=== PATIENT | male | born 1940 | race Caucasian/White ===

== ENCOUNTER 2017-02-19 08:00 | Outpatient (CLI) | payer MEDICARE, OTHER ==
[2017-02-19 12:59] LABS: BASOPHILS % (AUTO) 1.1 %; EOSINOPHILS # (AUTO) 0.1 10^3/uL (0.0-0.7); EOSINOPHILS % (AUTO) 2.6 %; HCT - HEMATOCRIT 33.7 % (42.0-52.0); HGB - HEMOGLOBIN 11.5 g/dL (14.0-18.0); LYMPHOCYTES # (AUTO) 1.2 10^3/uL (1.5-3.5); LYMPHOCYTES % (AUTO) 31.1 %; MEAN CORPUSCULAR HEMOGLOBIN 29.2 pg (27.0-31.0); MEAN CORPUSCULAR VOLUME 85.9 fL (80.0-94.0); MEAN PLATELET VOLUME 7.9 fL (7.4-11.4); MONOCYTES # (AUTO) 0.5 10^3/uL (0.0-1.0); MONOCYTES % (AUTO) 12.3 %; NEUTROPHILS % (AUTO) 52.9 %; NUCLEATED RED BLOOD CELLS AUTO 0.1 /100WBC; RED BLOOD COUNT 3.92 10^6/uL (4.70-6.10); RED CELL DISTRIBUTION WIDTH 14.8 % (12.0-15.0); UNCORRECTED WHITE BLOOD COUNT 3.8 x10^3/uL; WHITE BLOOD COUNT 3.8 x10^3/uL (4.8-10.8)
[2017-02-19 13:16] LABS: ALBUMIN/GLOBULIN RATIO 1.5 (1.0-2.2); BILIRUBIN,TOTAL 0.5 mg/dL (0.2-1.0); BUN - BLOOD UREA NITROGEN 25 mg/dL (6-20); CARBON DIOXIDE - CO2 23 mmol/L (21-32); CHLORIDE 111 mmol/L (101-111); CREATININE 1.6 mg/dL (0.6-1.2); GFR - MDRD 42 (>89); GLUCOSE 93 mg/dL (70-100); MAGNESIUM 1.6 mg/dL (1.7-2.8); POTASSIUM 3.9 mmol/L (3.5-5.0); SODIUM 143 mmol/L (135-145); TOTAL PROTEIN 6.6 g/dL (6.7-8.2)
[2017-02-19 13:47] LABS: HEMOGLOBIN A1C 0.69 g/dL
== END 2017-02-19 23:59 ==
LOC: LAB.WCP 08:00
PROVIDERS: ATTEND Family Medicine
DX: N18.3 Chronic kidney disease, stage 3 (moderate) (principal); I10 Essential (primary) hypertension; E03.9 Hypothyroidism, unspecified
CPT/HCPCS: 36415; 80053; 82043; 83036; 83735; 84443; 85025

== ENCOUNTER 2017-09-23 08:00 | Outpatient (CLI) | payer MEDICARE, OTHER ==
[2017-09-23 12:47] LABS: ALBUMIN 3.9 g/dL (3.2-5.5); ALBUMIN/GLOBULIN RATIO 1.6 (1.0-2.2); ALKALINE PHOSPHATASE 37 IU/L (42-121); ALT ALANINE AMINOTRANSFERASE 19 IU/L (10-60); AST ASPARTATE AMINOTRANSFERASE 18 IU/L (10-42); BILIRUBIN,TOTAL 0.9 mg/dL (0.2-1.0); BUN - BLOOD UREA NITROGEN 20 mg/dL (6-20); CALCIUM 8.7 mg/dL (8.5-10.3); CARBON DIOXIDE - CO2 23 mmol/L (21-32); CHLORIDE 110 mmol/L (101-111); CHOL/HDL RATIO 2.4 (<5.0); CHOLESTEROL 77 mg/dL; CREATININE 1.4 mg/dL (0.6-1.2); GFR - MDRD 49 (>89); GLUCOSE 91 mg/dL (70-100); HDL CHOLESTEROL 32 mg/dL; LDL CHOLESTEROL,CALCULATED 28 mg/dL; LDL/HDL RATIO 0.9 (<3.6); SODIUM 141 mmol/L (135-145); TOTAL PROTEIN 6.4 g/dL (6.7-8.2); VLDL CHOLESTEROL 17 mg/dL
[2017-09-23 13:17] LABS: HB2 TOTAL 11.7 g/dL; HEMOGLOBIN A1C 0.6 g/dL; HEMOGLOBIN A1C % 6.8 % (4.6-6.2)
== END 2017-09-23 08:01 | disposition home or self-care (01) ==
LOC: LAB.WCP 08:00
PROVIDERS: ATTEND Family Medicine
DX: J44.9 Chronic obstructive pulmonary disease, unspecified (principal); E11.9 Type 2 diabetes mellitus without complications; I12.9 Hypertensive chronic kidney disease with stage 1 through stage 4 chronic kidney disease, or unspecified chronic kidney disease; N18.3 Chronic kidney disease, stage 3 (moderate); E78.5 Hyperlipidemia, unspecified
CPT/HCPCS: 36415; 80053; 80061; 83036; 83721; 84443

== ENCOUNTER 2017-11-01 07:53 | Outpatient (CLI) | payer MEDICARE, OTHER ==
--- NOTE | 2017-11-01 13:31 | CT Report ---
CT OF THE PELVIS WITHOUT CONTRAST: 11/01/2017 CLINICAL INDICATION: History of right groin pain, history of right hernia repair. TECHNIQUE: Axial CT images of the pelvis were obtained without oral or intravenous contrast (History of anaphylaxis with contrast). COMPARISON: 08/10/2016. FINDINGS: The visualized bowel loops are normal in caliber. Sigmoid diverticulosis is again seen, without CT evidence of diverticulitis. Postoperative changes are seen in the right inguinal canal. No recurrent or residual hernia is identified. No pelvic adenopathy or free fluid is present. Osseous structures demonstrate mild degenerative changes. IMPRESSION: DIVERTICULOSIS, WITHOUT CT EVIDENCE OF DIVERTICULITIS. NO EVIDENCE OF RECURRENT RIGHT INGUINAL HERNIA. In accordance with CT protocol optimization, one or more of the following dose reduction techniques were utilized for this exam: automated exposure control, adjustment of mA and/or KV based on patient size, or use of iterative reconstructive technique. TD: 11/01/2017 13:30
== END 2017-11-01 07:54 | disposition home or self-care (01) ==
LOC: DI 07:53
PROVIDERS: ATTEND Surgery
DX: R10.31 Right lower quadrant pain (principal); K57.30 Diverticulosis of large intestine without perforation or abscess without bleeding
CPT/HCPCS: 72192

== ENCOUNTER 2018-04-06 08:00 | Outpatient (CLI) | payer MEDICARE, OTHER ==
[2018-04-06 13:32] LABS: EOSINOPHILS # (AUTO) 0.1 10^3/uL (0.0-0.7); EOSINOPHILS % (AUTO) 3.4 %; HGB - HEMOGLOBIN 11.5 g/dL (14.0-18.0); LYMPHOCYTES % (AUTO) 27.6 %; MEAN CORPUSCULAR HEMOGLOBIN 30.1 pg (27.0-31.0); MEAN CORPUSCULAR HGB CONC 34.6 g/dL (32.0-36.0); MEAN CORPUSCULAR VOLUME 86.9 fL (80.0-94.0); MONOCYTES # (AUTO) 0.4 10^3/uL (0.0-1.0); MONOCYTES % (AUTO) 9.4 %; NEUTROPHILS # (AUTO) 2.2 10^3/uL (1.5-6.6); NEUTROPHILS % (AUTO) 58.6 %; PLT - PLATELET COUNT 181 10^3/uL (130-450); RED BLOOD COUNT 3.81 10^6/uL (4.70-6.10); RED CELL DISTRIBUTION WIDTH 14.1 % (12.0-15.0); WHITE BLOOD COUNT 3.7 x10^3/uL (4.8-10.8)
[2018-04-06 14:02] LABS: ALBUMIN 3.9 g/dL (3.2-5.5); ALBUMIN/GLOBULIN RATIO 1.4 (1.0-2.2); ALKALINE PHOSPHATASE 38 IU/L (42-121); ALT ALANINE AMINOTRANSFERASE 23 IU/L (10-60); AST ASPARTATE AMINOTRANSFERASE 21 IU/L (10-42); BILIRUBIN,TOTAL 0.9 mg/dL (0.2-1.0); BUN - BLOOD UREA NITROGEN 27 mg/dL (6-20); CARBON DIOXIDE - CO2 23 mmol/L (21-32); CHLORIDE 107 mmol/L (101-111); CHOL/HDL RATIO 2.5 (<5.0); CHOLESTEROL 81 mg/dL; CREATININE 1.8 mg/dL (0.6-1.2); GFR - MDRD 37 (>89); GLUCOSE 135 mg/dL (70-100); HDL CHOLESTEROL 33 mg/dL; LDL CHOLESTEROL,CALCULATED 27 mg/dL; LDL/HDL RATIO 0.8 (<3.6); MAGNESIUM 1.9 mg/dL (1.7-2.8); SODIUM 138 mmol/L (135-145); TOTAL PROTEIN 6.6 g/dL (6.7-8.2); VLDL CHOLESTEROL 21 mg/dL
[2018-04-06 14:37] LABS: HB2 TOTAL 11.9 g/dL; HEMOGLOBIN A1C 0.61 g/dL; HEMOGLOBIN A1C % 6.8 % (4.6-6.2)
== END 2018-04-06 08:01 | disposition home or self-care (01) ==
LOC: LAB.WCP 08:00
PROVIDERS: ATTEND Family Medicine
DX: E11.9 Type 2 diabetes mellitus without complications (principal); E03.9 Hypothyroidism, unspecified; I10 Essential (primary) hypertension; E78.5 Hyperlipidemia, unspecified
CPT/HCPCS: 36415; 80053; 80061; 82043; 83036; 83721; 83735; 84443; 85025

== ENCOUNTER 2018-11-08 08:00 | Outpatient (CLI) | payer MEDICARE, OTHER | END 2018-11-08 23:59 | disposition home or self-care (01) | LOC: LAB.R 08:00 | PROVIDERS: ATTEND Family Medicine | DX: J11.1 Influenza due to unidentified influenza virus with other respiratory manifestations (principal) | CPT/HCPCS: 87275; 87276 ==

== ENCOUNTER 2018-11-10 09:17 | Outpatient (CLI) | payer MEDICARE, OTHER ==
[2018-11-10 13:16] LABS: ALBUMIN 3.8 g/dL (3.2-5.5); ALBUMIN/GLOBULIN RATIO 1.3 (1.0-2.2); BILIRUBIN,TOTAL 0.8 mg/dL (0.2-1.0); CALCIUM 8.4 mg/dL (8.5-10.3); CREATININE 1.9 mg/dL (0.6-1.2); TOTAL PROTEIN 6.7 g/dL (6.7-8.2)
[2018-11-10 14:14] LABS: HB2 TOTAL 11.9 g/dL; HEMOGLOBIN A1C 0.59 g/dL; HEMOGLOBIN A1C % 6.7 % (4.6-6.2)
== END 2018-11-10 23:59 | disposition home or self-care (01) ==
LOC: LAB.WCP 09:17
PROVIDERS: ATTEND Family Medicine
DX: E11.9 Type 2 diabetes mellitus without complications (principal); I12.9 Hypertensive chronic kidney disease with stage 1 through stage 4 chronic kidney disease, or unspecified chronic kidney disease; N18.3 Chronic kidney disease, stage 3 (moderate); E78.5 Hyperlipidemia, unspecified; M75.101 Unspecified rotator cuff tear or rupture of right shoulder, not specified as traumatic
CPT/HCPCS: 36415; 80053; 83036

== ENCOUNTER 2018-12-09 12:34 | Emergency (ER) | payer MEDICARE, OTHER ==
[2018-12-09 12:40] VITALS: BP 130/51
[2018-12-09] MEDS ORDERED: SODIUM CHLORIDE 0.9% 1,000 ML IV ONE (13:09)
[2018-12-09] MEDS ORDERED: IPRATROPIUM/ALBUTEROL 3 ML NEB INH STA (13:10)
[2018-12-09] MEDS ORDERED: DEXAMETHASONE 10 MG/ML VIAL IVP STA (13:10)
--- NOTE | 2018-12-09 13:17 | ED Physician Documentation ---
History of Present Illness - Stated complaint Stated Complaint: SOA - Chief complaint Chief Complaint: Resp - History obtained from History obtained from: Patient, Family - History of Present Illness Pain level max: 0 Pain level now: 0 - Additonal information Additional information: 78-year-old male presents to the emergency department stating that he has not been feeling well for the past few weeks. Had influenza A a few weeks ago, since that time has had continued fatigue. Increasing difficulty breathing over the past few days. States that he is just not feeling well at home. He has a history of COPD, diabetes. He has been using his inhaler approximately every 4 hours at home. Nothing makes it better or worse Review of Systems Ten Systems: 10 systems reviewed and negative Constitutional: denies: Fever, Chills Ears: denies: Ear pain Nose: denies: Rhinorrhea / runny nose, Congestion Cardiac: denies: Chest pain / pressure, Palpitations Respiratory: reports: Dyspnea, Cough, Wheezing GI: denies: Vomiting, Diarrhea Skin: denies: Rash Musculoskeletal: denies: Neck pain, Back pain Neurologic: denies: Headache PD PAST MEDICAL HISTORY - Past Medical History Past Medical History: Yes Cardiovascular: Hypertension, High cholesterol Respiratory: Asthma Endocrine/Autoimmune: Type 1 diabetes, HyPOthyroidism - Past Surgical History Past Surgical History: Yes General: Hiatal hernia repair HEENT: Cataracts - Present Medications Home Medications: Ambulatory Orders Medication Instructions Recorded Confirmed Albuterol Sulfate [Proair Hfa] 2 puffs PO DAILY PRN 09/20/14 12/09/18 Atorvastatin [Lipitor] 4 tab PO DAILY 09/20/14 12/09/18 Glipizide 1 tab PO BID 09/20/14 12/09/18 Levothyroxine [Synthroid] 100 mcg PO DAILY 09/20/14 12/09/18 Montelukast Sodium [Singulair] 1 mg PO DAILY 09/20/14 12/09/18 Niacin [Niaspan] 1 tab PO DAILY 09/20/14 12/09/18 Pioglitazone HCl [Actos] 1 tab PO DAILY 09/20/14 12/09/18 amLODIPine [Norvasc] 1 tab PO DAILY 09/20/14 12/09/18 Doxycycline Hyclate 100 mg PO BID #20 capsule 12/09/18 Losartan Potassium 50 mg PO DAILY 12/09/18 12/09/18 Omeprazole Magnesium [Prilosec] 1 mg PO DAILY 12/09/18 12/09/18 Tamsulosin HCl [Flomax] 1 tab PO DAILY 12/09/18 12/09/18 predniSONE [Prednisone] 40 mg PO DAILY #10 tablet 12/09/18 - Allergies Allergies/Adverse Reactions: Allergies Allergy/AdvReac Type Severity Reaction Status Date / Time IV dye Allergy Severe anaphylacti Uncoded 12/09/18 12:40 c - Social History Does the pt smoke?: No Smoking Status: Never smoker Does the pt drink ETOH?: Yes Does the pt have substance abuse?: No - Immunizations Immunizations are current?: Yes - POLST Patient has POLST: No PD ED PE NORMAL - Vitals Vital signs reviewed: Yes - General General: Alert and oriented X 3, No acute distress - HEENT HEENT: Moist mucous membranes, Pharynx benign - Neck Neck: Supple, no meningeal sign - Cardiac Cardiac: RRR, Strong equal pulses - Respiratory Respiratory: No respiratory distress, Other (Diminished breath sounds at the bases bilaterally) - Abdomen Abdomen: Soft, Non tender, Non distended - Derm Derm: Warm and dry - Neuro Neuro: Alert and oriented X 3 - Psych Psych: Normal mood, Normal affect Results - Vitals Vitals: Vital Signs - 24 hr 12/09/18 12/09/18 12/09/18 12:38 13:02 14:30 Temperature 36.8 C 37.1 C Heart Rate 86 78 Respiratory 20 20 Rate Blood Pressure 130/51 L O2 Saturation 95 12/09/18 15:47 Temperature 37.1 C Heart Rate 78 Respiratory 20 Rate Blood Pressure 130/51 L O2 Saturation 95 Oxygen O2 Source Room air - Labs Labs: Laboratory Tests 12/09/18 12/09/18 13:20 13:20 WBC 6.1 RBC 3.58 L Hgb 10.6 L Hct 31.3 L MCV 87.6 MCH 29.7 MCHC 33.9 RDW 13.9 Plt Count 207 MPV 7.5 Neut # (Auto) 4.5 Lymph # (Auto) 0.8 L Pickett # (Auto) 0.7 Eos # (Auto) 0.0 Baso # (Auto) 0.0 Absolute Nucleated RBC 0.00 Nucleated RBC % 0.0 Sodium 135 Potassium 4.0 Chloride 103 Carbon Dioxide 23 Anion Gap 9.0 BUN 25 H Creatinine 2.0 H Estimated GFR (MDRD) 33 L Glucose 226 H Calcium 8.7 Total Bilirubin 1.1 H AST 18 ALT 18 Alkaline Phosphatase 36 L Total Protein 7.0 Albumin 3.5 Globulin 3.5 Albumin/Globulin Ratio 1.0 Lipase 18 L - Rads (name of study) cxr Radiology: Prelim report reviewed, EMP read contemporaneously, See rad report (Patchy opacities in the left mid and lower lung, which may represent atelectasis or pneumonia. ) PD MEDICAL DECISION MAKING - ED course Complexity details: reviewed results, re-evaluated patient, considered differential, d/w patient, d/w family ED course: 78-year-old male with shortness of breath for the past several weeks. Had influenza A. Now appears to have a post influenza pneumonia. Will start on doxycycline. Feels better after Decadron and DuoNeb. No hypoxia or respiratory distress. Patient is well-appearing, nontoxic. Afebrile. Patient counseled regarding signs and symptoms for which I believe and urgent re-evaluation would be necessary. Patient with good understanding of and agreement to plan and is comfortable going home at this time This document was made in part using voice recognition software. While efforts are made to proofread this document, sound alike and grammatical errors may occur. Departure - Departure Disposition: 01 Home, Self Care Clinical Impression: Pneumonia Qualifiers: Pneumonia type: due to unspecified organism Laterality: left Lung location: unspecified part of lung Qualified Code(s): J18.9 - Pneumonia, unspecified organism Condition: Good Instructions: ED Pneumonia Adult Follow-Up: Jose Alfredo Su MD [Primary Care Provider] - Within 1 week Prescriptions: Doxycycline Hyclate 100 mg PO BID #20 capsule predniSONE [Prednisone] 40 mg PO DAILY #10 tablet Comments: Return if you worsen. Take all antibiotics until gone. Discharge Date/Time: 12/09/18 15:49
[2018-12-09 13:32] LABS: BASOPHILS % (AUTO) 0.5 %; EOSINOPHILS % (AUTO) 0.6 %; HGB - HEMOGLOBIN 10.6 g/dL (14.0-18.0); LYMPHOCYTES # (AUTO) 0.8 10^3/uL (1.5-3.5); LYMPHOCYTES % (AUTO) 13.5 %; MEAN CORPUSCULAR HEMOGLOBIN 29.7 pg (27.0-31.0); MEAN CORPUSCULAR HGB CONC 33.9 g/dL (32.0-36.0); MEAN CORPUSCULAR VOLUME 87.6 fL (80.0-94.0); MEAN PLATELET VOLUME 7.5 fL (7.4-11.4); MONOCYTES # (AUTO) 0.7 10^3/uL (0.0-1.0); MONOCYTES % (AUTO) 11.7 %; NEUTROPHILS # (AUTO) 4.5 10^3/uL (1.5-6.6); NEUTROPHILS % (AUTO) 73.7 %; PLT - PLATELET COUNT 207 10^3/uL (130-450); RED BLOOD COUNT 3.58 10^6/uL (4.70-6.10); RED CELL DISTRIBUTION WIDTH 13.9 % (12.0-15.0); WHITE BLOOD COUNT 6.1 x10^3/uL (4.8-10.8)
[2018-12-09 13:46] LABS: ALBUMIN 3.5 g/dL (3.2-5.5); BILIRUBIN,TOTAL 1.1 mg/dL (0.2-1.0); CALCIUM 8.7 mg/dL (8.5-10.3)
--- NOTE | 2018-12-09 14:47 | XRAY Report ---
Reason: cough Procedure Date: 12/09/2018 Accession Number: [id number] / [id number] Procedure: XR - Chest 2 View X-Ray CPT Code: 87707 FULL RESULT: EXAM: CHEST RADIOGRAPHY EXAM DATE: 12/09/2018 02:35 PM. CLINICAL HISTORY: Cough. COMPARISON: CHEST 2 VIEW PA/LAT 06/09/2016 10:18 AM. TECHNIQUE: 2 views. FINDINGS: Heart size is normal. Calcified plaques in the thoracic aorta. Patchy opacities in the left mid and lower lung. No pleural effusions or pneumothoraces. IMPRESSION: Patchy opacities in the left mid and lower lung, which may represent atelectasis or pneumonia. RADIA
[2018-12-09] MEDS ORDERED: DOXYCYCLINE 100 MG TABLET PO STA (15:03)
== END 2018-12-09 15:49 | disposition home or self-care (01) ==
LOC: ED 12:34
DX: J18.9 Pneumonia, unspecified organism (principal); E10.9 Type 1 diabetes mellitus without complications; I10 Essential (primary) hypertension; E78.00 Pure hypercholesterolemia, unspecified; E03.9 Hypothyroidism, unspecified
CPT/HCPCS: 36415; 71046; 80053; 83690; 85025; 94640; 96361; 96374; 99283; 99284; A9270

== ENCOUNTER 2019-01-27 14:26 | Outpatient (CLI) | payer MEDICARE, OTHER ==
--- NOTE | 2019-01-28 14:33 | XRAY Report ---
Reason: LOW BACK PAIN Procedure Date: 01/27/2019 Accession Number: [id number] / [id number] Procedure: WCP - Lumbar Spine 2 View CPT Code: FULL RESULT: EXAM: LUMBOSACRAL SPINE RADIOGRAPHY EXAM DATE: 01/27/2019 02:38 PM. CLINICAL HISTORY: Low back pain. COMPARISONS: CHEST 2 VIEW 12/09/2018 2:25 PM. TECHNIQUE: 2 views. FINDINGS: Alignment: Normal. No spondylolisthesis or scoliosis. Bones: Five [id number] lumbar vertebral bodies are present. No fractures or bone lesions. Disks: Normal. Disk heights are maintained. Facets: No degenerative changes. Sacroiliac Joints: Unremarkable. Soft Tissues: Arthroscopic deposition is noted within the abdominal aorta without apparent aneurysmal dilatation. Stable mild anterior wedging compression of superior endplate of T11 compared to a prior chest radiograph. The visualized bowel gas pattern is normal. IMPRESSION: Normal lumbar spine radiography. RADIA
== END 2019-01-27 14:27 | disposition home or self-care (01) ==
LOC: DI.WCP 14:26
PROVIDERS: ATTEND Physician Assistant
DX: M54.5 Low back pain (principal)
CPT/HCPCS: 72100

== ENCOUNTER 2019-03-30 13:17 | Outpatient (CLI) | payer MEDICARE, OTHER ==
--- NOTE | 2019-03-31 11:18 | DEXA Report ---
Reason: BONE DISORDER Procedure Date: 03/30/2019 Accession Number: [id number] / [id number] Procedure: DEX - Dexa Spine and/or Hip CPT Code: FULL RESULT: EXAM: Dexa Spine and/or Hip DATE: 03/30/2019 1:45 PM CLINICAL HISTORY: BONE DISORDER TECHNIQUE: Dual energy x-ray absorptiometry (DXA) was performed on a Cherrish System. Regions measured are the AP Spine, femoral neck, and if needed forearm. COMPARISON: None. In accordance with the International Society for Clinical Densitometry (ISCD) guidelines, data from previous exams may be reanalyzed using current recommendations and techniques. This is done to allow a more accurate basis for comparison with the current study. FINDINGS: The data for the lumbar spine is as follows: BMD (g/cm/cm) T-SCORE Z-SCORE REGION L1 1.353 1.6 1.7 L2 1.517 2.3 2.4 L3 1.586 2.9 3.0 L4 1.542 2.5 2.6 TOTAL 1.511 2.4 2.5 NOTE: All evaluable vertebrae are used for classification The data for the hip is as follows: BMD (g/cm/cm) T-SCORE Z-SCORE REGION Neck 0.909 -1.2 -0.2 TOTAL 0.979 -0.8 -0.2 NOTE: The femoral neck or total proximal femur, whichever is lowest, is used for classification. IMPRESSION: THE WHO CLASSIFICATION BASED ON THE INTERNATIONAL REFERENCE STANDARD IS OSTEOPENIA. THE FRACTURE RISK IS INCREASED. Please note that the decreased bone density is detected only in the hip. RECOMMENDATION: Patients with diagnosis of osteoporosis or osteopenia should have regular bone mineral density assessment. For those eligible for Medicare, routine testing is allowed once every 2 years. Testing frequency can be increased for patients who have rapidly progressing disease or for those who are receiving medical therapy to restore bone mass. COMMENT: World Health Organization (WHO) definitions for osteoporosis and osteopenia: NORMAL BMD: T-score at -1.0 or higher, fracture risk is low OSTEOPENIA BMD: T-score between -1.0 and -2.5, fracture risk is increased. OSTEOPOROSIS BMD: T-score at -2.5 or lower, fracture risk is high. National Osteoporosis Foundation recommends: 1. Obtain adequate dietary calcium (at least 1200 mg per day) and vitamin D (400-800 international units per day). 2. Participate, as appropriate, in regular weightbearing and muscle-strengthening exercise. 3. Avoid tobacco use and reduce alcohol and caffeine intake. 4. For more detailed information see the website at www.NOF.org.
== END 2019-03-30 13:18 | disposition home or self-care (01) ==
LOC: DI 13:17
PROVIDERS: ATTEND Physician Assistant
DX: M85.88 Other specified disorders of bone density and structure, other site (principal)
CPT/HCPCS: 77080

== ENCOUNTER 2019-07-05 15:33 | Outpatient (CLI) | payer MEDICARE, OTHER ==
--- NOTE | 2019-07-06 14:10 | XRAY Report ---
Reason: GAS PAIN Procedure Date: 07/05/2019 Accession Number: [id number] / [id number] Procedure: XRN - Abdomen 2 View X-Ray CPT Code: 81832 Final Report FULL RESULT: EXAM: ABDOMEN RADIOGRAPHY EXAM DATE: 07/05/2019 03:59 PM. CLINICAL HISTORY: Abdominal pain, gas pain. COMPARISON: ABDOMEN/PELVIS W/O 08/10/2016 6:52 AM. TECHNIQUE: 2 views. FINDINGS: Lung Bases: Unremarkable. Bowel Gas Pattern: Within normal limits. No dilated loops or abnormal fluid levels. Free Air: None. Other: None. IMPRESSION: Normal 2-view abdomen x-ray. RADIA
== END 2019-07-05 15:34 | disposition home or self-care (01) ==
LOC: DI.N 15:33
PROVIDERS: ATTEND Physician Assistant Medical
DX: R10.9 Unspecified abdominal pain (principal); R14.0 Abdominal distension (gaseous)
CPT/HCPCS: 74019

== ENCOUNTER 2019-10-27 08:48 | Outpatient (CLI) | payer MEDICARE, OTHER ==
--- NOTE | 2019-10-27 15:49 | XRAY Report ---
Reason: COUGH WITH FEVER Procedure Date: 10/27/2019 Accession Number: [id number] / [id number] Procedure: WCP - Chest 2 View X-Ray CPT Code: 35526 Final Report FULL RESULT: EXAM: CHEST RADIOGRAPHY 2 VIEWS EXAM DATE: 10/27/2019. CLINICAL HISTORY: Cough with fever. COMPARISON: PA and lateral chest on 06/09/2016. TECHNIQUE: PA and lateral views. FINDINGS: Lungs/Pleura: Normal vasculature. The lungs are clear. No pleural fluid or pneumothorax. Mediastinum: Normal cardiac and mediastinal contours. Bones: Mild degenerative changes of the spine. IMPRESSION: Normal examination. No change from 06/09/2016. RADIA
== END 2019-10-27 23:59 | disposition home or self-care (01) ==
LOC: DI.WCP 08:48
PROVIDERS: ATTEND Family Medicine
DX: R05 Cough (principal); R50.9 Fever, unspecified
CPT/HCPCS: 71046

== ENCOUNTER 2019-11-10 14:52 | Outpatient (CLI) | payer MEDICARE, OTHER ==
--- NOTE | 2019-11-10 23:19 | XRAY Report ---
Reason: pneumonia, COPD Procedure Date: 11/10/2019 Accession Number: [id number] / [id number] Procedure: XRN - Chest 2 View X-Ray CPT Code: 15479 Final Report FULL RESULT: EXAM: CHEST RADIOGRAPHY EXAM DATE: 11/10/2019 03:13 PM. CLINICAL HISTORY: Pneumonia, COPD. Productive cough. COMPARISON: CHEST 2 VIEW 10/27/2019 8:39 AM. TECHNIQUE: 2 views. FINDINGS: Lungs/Pleura: New minimal left base lateral opacification, could represent atelectasis versus minimal pneumonia. No pleural effusion or pneumothorax. Mediastinum: Heart and mediastinal contours are unremarkable. IMPRESSION: New minimal left base lateral opacification, could represent atelectasis versus minimal pneumonia. RADIA
== END 2019-11-10 14:53 | disposition home or self-care (01) ==
LOC: DI.N 14:52
PROVIDERS: ATTEND Family Medicine
DX: J44.0 Chronic obstructive pulmonary disease with (acute) lower respiratory infection (principal); R06.00 Dyspnea, unspecified; R07.89 Other chest pain
CPT/HCPCS: 36415; 71046; 80048; 83880; 84484; 85027

== ENCOUNTER 2019-11-10 16:32 | Outpatient (CLI) | payer MEDICARE, OTHER ==
[2019-11-10 16:51] LABS: HGB - HEMOGLOBIN 10.6 g/dL (14.0-18.0); MEAN CORPUSCULAR HEMOGLOBIN 30.3 pg (27.0-31.0); MEAN CORPUSCULAR HGB CONC 32.8 g/dL (32.0-36.0); MEAN CORPUSCULAR VOLUME 92.3 fL (80.0-94.0); MEAN PLATELET VOLUME 8.8 fL (7.4-11.4); RED BLOOD COUNT 3.5 10^6/uL (4.70-6.10); RED CELL DISTRIBUTION WIDTH 14.2 % (12.0-15.0); WHITE BLOOD COUNT 6.9 x10^3/uL (4.8-10.8)
[2019-11-10 16:58] LABS: CALCIUM 8.9 mg/dL (8.5-10.3); CREATININE 2.1 mg/dL (0.6-1.2)
== END 2019-11-10 16:33 | disposition home or self-care (01) ==
LOC: LAB 16:32
PROVIDERS: ATTEND Family Medicine
DX: R06.00 Dyspnea, unspecified (principal); R07.89 Other chest pain
CPT/HCPCS: 36415; 80048; 83880; 84484; 85027

== ENCOUNTER 2020-01-02 14:41 | Outpatient (CLI) | payer MEDICARE, OTHER ==
--- NOTE | 2020-01-02 21:41 | XRAY Report ---
Reason: LEFT WRIST PAIN Procedure Date: 01/02/2020 Accession Number: [id number] / [id number] Procedure: WCP - Wrist 3 View LT CPT Code: Final Report FULL RESULT: EXAM: 1. LEFT WRIST RADIOGRAPHY. 2. LEFT HAND RADIOGRAPHY. EXAM DATE: 01/02/2020 02:41 PM. CLINICAL HISTORY: Left wrist pain. Fall onto the left hand today. Pain down center of hand and wrist. COMPARISON: None. TECHNIQUE: 3 views wrist and 3 views hand. FINDINGS: Bones: Osteopenia. Mildly comminuted and displaced spiral fractures of the 3rd and 4th metacarpal diaphyses. Possible extension into the proximal carpometacarpal joints. Distal fracture fragment at the 3rd metacarpal displaced dorsally 3 mm. Joints: Alignment anatomic. Scattered mild to moderate degenerative changes, most prominent at the 1st carpometacarpal joint. Soft Tissues: Mild soft tissue swelling over the metacarpals dorsally. IMPRESSION: 1. Osteopenia. 2. Mildly rounded and displaced spiral fractures 3rd and 4th metacarpals with possible intra-articular extension proximally. 3. Mild soft tissue swelling. RADIA
--- NOTE | 2020-01-02 21:42 | XRAY Report ---
Reason: LEFT HAND PAIN Procedure Date: 01/02/2020 Accession Number: [id number] / [id number] Procedure: WCP - Hand 3 View LT CPT Code: Final Report FULL RESULT: EXAM: 1. LEFT WRIST RADIOGRAPHY. 2. LEFT HAND RADIOGRAPHY. EXAM DATE: 01/02/2020 02:41 PM. CLINICAL HISTORY: Left wrist pain. Fall onto the left hand today. Pain down center of hand and wrist. COMPARISON: None. TECHNIQUE: 3 views wrist and 3 views hand. FINDINGS: Bones: Osteopenia. Mildly comminuted and displaced spiral fractures of the 3rd and 4th metacarpal diaphyses. Possible extension into the proximal carpometacarpal joints. Distal fracture fragment at the 3rd metacarpal displaced dorsally 3 mm. Joints: Alignment anatomic. Scattered mild to moderate degenerative changes, most prominent at the 1st carpometacarpal joint. Soft Tissues: Mild soft tissue swelling over the metacarpals dorsally. IMPRESSION: 1. Osteopenia. 2. Mildly rounded and displaced spiral fractures 3rd and 4th metacarpals with possible intra-articular extension proximally. 3. Mild soft tissue swelling. RADIA
== END 2020-01-02 23:59 | disposition home or self-care (01) ==
LOC: DI.WCP 14:41
PROVIDERS: ATTEND Nurse Practitioner
DX: S62.323A Displaced fracture of shaft of third metacarpal bone, left hand, initial encounter for closed fracture (principal); S62.325A Displaced fracture of shaft of fourth metacarpal bone, left hand, initial encounter for closed fracture; M85.842 Other specified disorders of bone density and structure, left hand

== ENCOUNTER 2020-03-19 11:13 | Outpatient (CLI) | payer MEDICARE, OTHER ==
[2020-03-19 11:30] LABS: BASOPHILS % (AUTO) 0.8 %; EOSINOPHILS # (AUTO) 0.2 10^3/uL (0.0-0.7); EOSINOPHILS % (AUTO) 3.2 %; LYMPHOCYTES # (AUTO) 1.1 10^3/uL (1.5-3.5); LYMPHOCYTES % (AUTO) 21.8 %; MEAN CORPUSCULAR HEMOGLOBIN 29.9 pg (27.0-31.0); MEAN CORPUSCULAR HGB CONC 32.7 g/dL (32.0-36.0); MEAN CORPUSCULAR VOLUME 91.3 fL (80.0-94.0); MEAN PLATELET VOLUME 8.8 fL (7.4-11.4); MONOCYTES # (AUTO) 0.4 10^3/uL (0.0-1.0); MONOCYTES % (AUTO) 8.2 %; NEUTROPHILS # (AUTO) 3.3 10^3/uL (1.5-6.6); NEUTROPHILS % (AUTO) 65.6 %; PLT - PLATELET COUNT 164 10^3/uL (130-450); RED BLOOD COUNT 3.68 10^6/uL (4.70-6.10); RED CELL DISTRIBUTION WIDTH 13.8 % (12.0-15.0)
[2020-03-19 11:46] LABS: ALBUMIN 4.2 g/dL (3.2-5.5); ALBUMIN/GLOBULIN RATIO 1.7 (1.0-2.2); BILIRUBIN,TOTAL 0.9 mg/dL (0.2-1.0); CALCIUM 9.1 mg/dL (8.5-10.3); CREATININE 2.2 mg/dL (0.6-1.2); TOTAL PROTEIN 6.7 g/dL (6.7-8.2)
== END 2020-03-19 11:14 | disposition home or self-care (01) ==
LOC: LAB 11:13
PROVIDERS: ATTEND Physician Assistant
DX: R19.5 Other fecal abnormalities (principal); R17 Unspecified jaundice
CPT/HCPCS: 36415; 80053; 82977; 85025

== ENCOUNTER 2020-04-12 08:56 | Outpatient (CLI) | payer MEDICARE, OTHER | END 2020-04-12 08:57 | disposition home or self-care (01) | LOC: DI 08:56 | PROVIDERS: ATTEND Physician Assistant | DX: I51.7 Cardiomegaly (principal) | CPT/HCPCS: 93306 ==

== ENCOUNTER 2020-07-04 08:00 | Outpatient (CLI) | payer MEDICARE, OTHER ==
[2020-07-04 18:47] LABS: BASOPHILS % (AUTO) 0.7 %; EOSINOPHILS # (AUTO) 0.1 10^3/uL (0.0-0.7); EOSINOPHILS % (AUTO) 3.1 %; HGB - HEMOGLOBIN 10.9 g/dL (14.0-18.0); LYMPHOCYTES # (AUTO) 1.3 10^3/uL (1.5-3.5); LYMPHOCYTES % (AUTO) 28.1 %; MEAN CORPUSCULAR HEMOGLOBIN 29.6 pg (27.0-31.0); MEAN CORPUSCULAR HGB CONC 31.7 g/dL (32.0-36.0); MEAN CORPUSCULAR VOLUME 93.5 fL (80.0-94.0); MEAN PLATELET VOLUME 10.2 fL (7.4-11.4); MONOCYTES # (AUTO) 0.3 10^3/uL (0.0-1.0); MONOCYTES % (AUTO) 7.2 %; NEUTROPHILS # (AUTO) 2.8 10^3/uL (1.5-6.6); NEUTROPHILS % (AUTO) 60.7 %; PLT - PLATELET COUNT 187 10^3/uL (130-450); RED BLOOD COUNT 3.68 10^6/uL (4.70-6.10); RED CELL DISTRIBUTION WIDTH 14.2 % (12.0-15.0); WHITE BLOOD COUNT 4.6 x10^3/uL (4.8-10.8)
[2020-07-04 19:06] LABS: ALBUMIN 4.1 g/dL (3.2-5.5); ALBUMIN/GLOBULIN RATIO 1.5 (1.0-2.2); ALKALINE PHOSPHATASE 40 IU/L (42-121); ALT ALANINE AMINOTRANSFERASE 21 IU/L (10-60); AST ASPARTATE AMINOTRANSFERASE 17 IU/L (10-42); BILIRUBIN,TOTAL 0.9 mg/dL (0.2-1.0); BUN - BLOOD UREA NITROGEN 28 mg/dL (6-20); CALCIUM 9.2 mg/dL (8.5-10.3); CARBON DIOXIDE - CO2 22 mmol/L (21-32); CHLORIDE 108 mmol/L (101-111); CHOL/HDL RATIO 2.4 (<5.0); CHOLESTEROL 97 mg/dL; GLUCOSE 128 mg/dL (70-100); HDL CHOLESTEROL 41 mg/dL; LDL CHOLESTEROL,CALCULATED 44 mg/dL; LDL/HDL RATIO 1.1 (<3.6); SODIUM 140 mmol/L (135-145); TOTAL PROTEIN 6.9 g/dL (6.7-8.2); VLDL CHOLESTEROL 12 mg/dL
[2020-07-04 20:44] LABS: HEMOGLOBIN A1c% 6.4 % (4.27-6.07)
== END 2020-07-04 23:59 | disposition home or self-care (01) ==
LOC: LAB.WCP 08:00
PROVIDERS: ATTEND Physician Assistant
DX: E11.9 Type 2 diabetes mellitus without complications (principal); Z12.5 Encounter for screening for malignant neoplasm of prostate; E03.9 Hypothyroidism, unspecified
CPT/HCPCS: 36415; 80053; 80061; 83036; 84443; 85025; G0103; 83721; 84153

== ENCOUNTER 2020-08-26 10:23 | Outpatient (CLI) | payer MEDICARE, OTHER ==
--- NOTE | 2020-08-26 12:44 | SLEEP CARE CONSULTATION ---
Information from patient questionnaire entered by Haydee Hansen. I have reviewed and concur with the information entered by Haydee Hansen. This document represents the service I personally performed and the decisions made by me, William Davidson MD, [facility]. History of Present Illness Service Date and Time: 08/26/2020 1023 Reason for Visit: New patient Chief Complaint: reports: Insomnia, Unrefreshed sleep, Snoring, Fatigue, Frequent awakenings at night Date of Onset: 5 years Usual bedtime: 9-10 pm Time it takes to fall asleep: sometimes fast, sometimes hours Snores at night: Yes Observed to quit breathing while asleep: No Sleeps alone due to snoring: No Number of times waking at night: 3-4 Reasons for waking at night: reports: Pain, Bathroom Toss, Turn, or Twitch while sleeping: Yes Feels refreshed in the morning: No (sometimes) Morning headache: Yes Sleepy or fatigued during the day: Yes Ever fallen asleep while driving: No Takes day naps: Yes Dreams during day naps: Yes Prior sleep studies: No Additional HPI information: I had the pleasure of seeing Mr. Monson today regarding the possibility of him having a sleep disorder. As you know, he is a 80 year old gentleman who complains of fatigue for the past 5 years. The patient tells me that he normally goes to bed around 9 - 10 pm, and it takes him sometimes hours to fall asleep. He has been told that he snores loudly and irregularly at night. He has never been observed to stop breathing in his sleep. However, he is a and sleeps alone. He can recall waking up on the average of 3 - 5 times during the night. Most of the time he wakes up because of having to use the bathroom and pain. He has awakened occasionally because of his own snoring, but not choking, or having to gasp for air. There is a lot of tossing and turning in his sleep. No somniloquy (sleep talking) or somnambulism (sleep walking). Generally he can recall having dreams. In the morning he usually gets up out of the bed around 7 a.m. not feeling refreshed nor rested. He usually occasionally has morning headache. During the day he complains of feeling fatigued but not particularly sleepy. His score on Thompson Sleepiness Scale is 5 out of 24. He has never fallen asleep while driving nor has had any accident due to sleepiness. He occasionally takes a nap during the day. Upon falling asleep during the day he reports having dreams. He has had sleep. No symptoms of restless leg syndrome. He denies having impaired concentration during the day. - Parasomnia Symptoms Ever been unable to move upon waking from sleep: Yes Ever felt weak in the knees when startled or emotional: No Bothered by creepy, crawly, restless sensations in legs: No Problems with memory or concentration: No Subjective Initial Thompson Sleepiness Scale score: 5 (in 2020) Past Medical History Past Medical History: reports: Hypertension, Diabetes, Asthma, Depression, GERD, Other (kidney disease, leg swelling) Social History The patient's occupation is a Retired. Patient is / and lives in [place]. Cigarettes per day (20/pack): 20 Years of smokin Quit date: 1964 Smoking Pack Years: 2.0 Alcohol use: Yes Alcohol amount and frequency: slight, sometimes once a week Caffeine use: Yes Caffeine amount and frequency: daily, 2 cups Family History Family history of sleep disordered breathing: Yes (mother) Allergies and Home Medications Drug allergies reviewed: Yes Home medication list reviewed: Yes Review of Systems Weight gain over past 5 years: 40 Weight loss over past 5 years: i wish Cardiovascular: reports: high blood pressure, chest pain, leg or foot swelling, have to sleep sitting up Respiratory: reports: shortness of breath, wheeze, other (Maya's Esodhagus) Gastrointestinal: reports: heartburn Urinary: reports: frequency Neurological: reports: headaches Psychiatric: reports: depression Ear/Nose/Throat: reports: nasal congestion, tonsillectomy, wisdom teeth removed Endocrine: reports: sluggishness, increased appetite, increased urination, unexplained weakness Musculoskeletal: reports: joint pain, neck pain, back pain, muscle pain or cramping Immunologic: reports: rash, itching, allergies to food or environment (shrimp only; shellfish, some not all) Physical Exam Vital signs obtained and entered by: To minimize the risk of COVID-19 exposure, detailed exam was not performed. Height: 5 ft 8 in Weight: 225 lb Body Mass Index: 34.2 BMI Classification: Obese Impression and Plan IMPRESSION: 1. Obstructive Sleep Apnea-Hypopnea Syndrome, as suggested by history of loud and irregular snoring, frequent awakenings during the night, unrefreshed sleep, morning headache, and fatigue. Narrow oropharynx and obesity are common predisposing factors for obstructive sleep apnea-hypopnea syndrome. Untreated obstructive sleep apnea can also cause hypertension. Pathophysiology of sleep- disordered breathing was discussed. I recommend proceeding to polysomnography to confirm the diagnosis and to assess severity. If he has significant sleep disordered breathing, a manual CPAP titration study will also be performed to find the optimal treatment pressure. I informed the patient of what the sleep studies involve and after some discussion, he agreed to proceed. Plan: 1. Schedule polysomnography and possibly a manual CPAP titration study 2. Avoid long distance driving or when feeling sleepy. 3. Avoid alcohol, sedative and muscle relaxant around bedtime. 4. Attempt to lose weight. 5. Return in 1 to 2 weeks after the study to discuss results and initiate therapy. Visit Type: In Office Time Spent with Patient (minutes): 15 Provider Statement: I spent 100% of the Face to Face Visit with the patient with greater than 50% spent counseling the patient and coordination of care.
== END 2020-08-26 10:24 | disposition home or self-care (01) ==
LOC: SC 10:23
PROVIDERS: ATTEND Internal Medicine Pulmonary Disease
DX: R53.83 Other fatigue (principal); G47.8 Other sleep disorders; R51.9 Headache, unspecified; R06.83 Snoring; E66.9 Obesity, unspecified; Z68.34 Body mass index [BMI] 34.0-34.9, adult
CPT/HCPCS: 99203; G0463; 99212

== ENCOUNTER 2020-09-14 08:15 | Outpatient (CLI) | payer MEDICARE, OTHER ==
--- NOTE | 2020-09-16 10:05 | MRI Report ---
PROCEDURE: Shoulder LT W/O INDICATIONS: LEFT ROTATOR CUFF SYNDROME TECHNIQUE: Noncontrast oblique coronal T2 fast spin echo with fat saturation, oblique sagittal T1 spin echo and T2 fast spin echo with fat saturation, axial T1 spin echo and T2 fast spin echo with fat saturation t hrough the shoulder. COMPARISON: None. FINDINGS: Image quality: Excellent. Rotator cuff: Tendinosis and low-grade articular and bursal surface partial-thickness tear involving distal supraspinatus and infraspinatus at their insertion on humeral head is seen extending to muscul ar tendinous junction. Distal subscapularis tendinosis and low-grade intrasubstance partial thickness tear is also noted. No full-thickness rotator cuff tendon rupture. Very mild supraspinatus muscle at rophy is seen on sagittal images. Bones and bursae: No bone marrow contusions or fractures. Moderate acromioclavicular joint osteoarth ritic changes are seen with downward osteophyte formation depressing on musculotendinous junction of supraspinatus. Mild glenohumeral joint osteoarthritis is also noted. The acromion demonstrates conven tional anatomy, without an os acromiale. No pathologic subacromial/subdeltoid bursal fluid is presen t. Capsule and soft tissues: In the absence of intra-articular contrast, there is suggestion of anterio r inferior labral tear at 5 to 6:00 position. The glenohumeral ligaments appear intact. Proximal intr a-articular portion of long head of biceps tendinosis and low-grade partial-thickness tear is seen. T he rotator interval appears normal, without fibrosis. The coracohumeral ligament is normal in thickn ess. IMPRESSION: 1. Tendinosis and low-grade articular and bursal surface partial-thickness tear involving distal supr aspinatus and infraspinatus extending to muscular tendinous junction. Distal subscapularis tendinosis and low-grade intrasubstance partial thickness tear. No full-thickness rotator cuff tendon rupture. Mild supraspinatus muscle atrophy. 2. Mild glenohumeral joint osteoarthritis and mild to moderate acromioclavicular joint osteoarthritis . No fracture or dislocation. 3. Suggestion of anterior inferior labral tear at 5 to 6:00 position. 4. Tendinosis and low-grade partial-thickness tear involving proximal intra-articular portion of long head of biceps. Reviewed by: Vik Snyder MD on 09/16/2020 10:04 AM PST Approved by: Vik Snyder MD on 09/16/2020 10:04 AM PST Station ID: [id number]
== END 2020-09-14 08:16 | disposition home or self-care (01) ==
LOC: DI 08:15
PROVIDERS: ATTEND Physician Assistant
DX: M75.102 Unspecified rotator cuff tear or rupture of left shoulder, not specified as traumatic (principal); M19.012 Primary osteoarthritis, left shoulder; S46.812A Strain of other muscles, fascia and tendons at shoulder and upper arm level, left arm, initial encounter; S46.112A Strain of muscle, fascia and tendon of long head of biceps, left arm, initial encounter

== ENCOUNTER 2020-10-06 20:38 | Outpatient (CLI) | payer MEDICARE, OTHER | END 2020-10-06 20:39 | disposition home or self-care (01) | LOC: SC 20:38 | PROVIDERS: ATTEND Internal Medicine Pulmonary Disease | DX: G47.33 Obstructive sleep apnea (adult) (pediatric) (principal); G47.61 Periodic limb movement disorder; I10 Essential (primary) hypertension; E11.9 Type 2 diabetes mellitus without complications; E66.9 Obesity, unspecified; Z68.34 Body mass index [BMI] 34.0-34.9, adult | CPT/HCPCS: 95810 ==

== ENCOUNTER 2020-10-14 08:53 | Outpatient (CLI) | payer MEDICARE, OTHER ==
--- NOTE | 2020-10-14 09:44 | SLEEP CARE CONSULTATION ---
Information from patient questionnaire entered by Haydee Hansen. I have reviewed and concur with the information entered by Haydee Hansen. This document represents the service I personally performed and the decisions made by me, William Davidson MD, [facility]. History of Present Illness Service Date and Time: 10/14/2020 0853 Initial [place] Sleepiness Scale score: 5 (in 2019) Current [place] Sleepiness Scale score: 0 Additional HPI information: HPI: Mr. Monson returned for follow up of the sleep study he had on 10/06/2020. The polysomnography showed that the patient had slightly reduced sleep efficiency due to a few awakenings after the sleep onset. The sleep architecture was relatively normal considering the first-night effect. Respiratory monitoring showed moderate obstructive sleep apnea-hypopnea (AHI = 16.6) associated with oxyhemoglobin desaturation and minimal hypoxia (simin oxygen saturation of 89%) but not sleep fragmentation. The respiratory events occurred mainly during supine sleep (supine AHI = 37.2; non-supine = 5.38). Snore was loud in intensity. There was mild periodic leg movement of sleep not associated with sleep fragmentation. Cardiac rhythm was normal sinus rhythm without significant arrhythmia. No abnormal behavior (parasomnia) observed during the night. The patient was informed of these findings. I explained to him the pathophysiology behind obstructive sleep apnea. We then spent quite a bit of time discussing different treatment options. For mild obstructive sleep apnea, surgery and oral appliance are alternatives to nasal CPAP therapy but in moderate or severe cases, nasal CPAP is the most effective and reliable treatment. Weight loss in an obese individual is strongly recommended. After some discussion, he opted to go with the nasal CPAP therapy. I explained to him how CPAP machine works and what to expect when using the machine. He is encouraged to use CPAP every night especially in the first 2 to 3 nights in order to get used to it. He should call his CPAP supplier or me to discuss any mechanical problem that may occur. If he snores or feels like he is not getting enough air from the machine, he should notify me and I will increase the pressure. Sleep Study - Results Type of Sleep Study: Polysomnography Prior sleep studies: No Allergies and Home Medications Drug allergies reviewed: Yes Home medication list reviewed: Yes Review of Systems Review of systems same as previous: Yes Physical Exam Height: 5 ft 8 in Weight: 252 lb (with coat and boots on) Body Mass Index: 38.2 BMI Classification: Obese Impression and Plan IMPRESSION: 1. Obstructive Sleep Apnea-Hypopnea Syndrome, moderate, associated with minimal hypoxemia. Possibly, this is the cause of the patients symptoms of unrefreshed sleep, and excessive daytime sleepiness. As mentioned above, the patient will be started on an autoCPAP set between 5 and 15 cmH2O. Depending on his response and compliance he may be brought back for an overnight CPAP titration study. PLAN: 1. Prescription made for an autoCPAP, heated humidifier, and related supplies. 2. Attempt to lose weight and avoid alcohol consumption near bedtime. 3. The patient is again cautioned about driving until his sleepiness completely resolves on the CPAP therapy. 4. Return for follow up after one month on the new machine. Follow up recommended for: Weight management Visit Type: In Office Time Spent with Patient (minutes): 15 Provider Statement: I spent 100% of the Face to Face Visit with the patient with greater than 50% spent counseling the patient and coordination of care.
== END 2020-10-14 08:54 | disposition home or self-care (01) ==
LOC: SC 08:53
PROVIDERS: ATTEND Internal Medicine Pulmonary Disease
DX: G47.33 Obstructive sleep apnea (adult) (pediatric) (principal); E66.9 Obesity, unspecified; Z68.38 Body mass index [BMI] 38.0-38.9, adult
CPT/HCPCS: 99212; G0463

== ENCOUNTER 2020-10-23 13:52 | Outpatient (CLI) | payer MEDICARE, OTHER ==
[2020-10-23 17:54] LABS: MICROALBUM/CREATININE RATIO,UR 104.9 ug/mg (<30.0); MICROALBUMIN,URINE 8.5 mg/dL (0-300.0)
== END 2020-10-23 13:53 | disposition home or self-care (01) ==
LOC: LAB.N 13:52
PROVIDERS: ATTEND Physician Assistant
DX: N18.30 Chronic kidney disease, stage 3 unspecified (principal)
CPT/HCPCS: 82043; 82570

== ENCOUNTER 2020-11-18 14:40 | Outpatient (CLI) | payer MEDICARE, OTHER ==
[2020-11-18 18:05] LABS: ALBUMIN/GLOBULIN RATIO 1.5 (1.0-2.2); BILIRUBIN,TOTAL 0.7 mg/dL (0.2-1.0); CALCIUM 9.4 mg/dL (8.5-10.3); CREATININE 2.5 mg/dL (0.6-1.2); POTASSIUM 4.8 mmol/L (3.5-5.0); TOTAL PROTEIN 6.6 g/dL (6.7-8.2)
[2020-11-18 18:14] LABS: CREATININE,URINE 90.7 mg/dL; MICROALBUM/CREATININE RATIO,UR 133.4 ug/mg (<30.0); MICROALBUMIN,URINE 12.1 mg/dL (0-300.0); PROTEIN/CREATININE RATIO,URINE 0.2 (<=0.2)
== END 2020-11-18 14:41 | disposition home or self-care (01) ==
LOC: LAB.N 14:40
PROVIDERS: ATTEND Physician Assistant
DX: N18.4 Chronic kidney disease, stage 4 (severe) (principal); E87.5 Hyperkalemia
CPT/HCPCS: 36415; 80053; 82043; 82570; 84156

== ENCOUNTER 2020-11-25 14:32 | Outpatient (CLI) | payer MEDICARE, OTHER ==
--- NOTE | 2020-11-26 10:46 | SLEEP CARE CONSULTATION ---
Information from patient questionnaire entered by Lorrie Peace. I have reviewed and concur with the information entered by Lorrie Peace. This document represents the service I personally performed and the decisions made by me, William Davidson MD, [facility]. History of Present Illness Service Date and Time: 11/25/2020 1432 Previous diagnosis: Moderate, Obstructive Sleep Apnea-Hypopnea Syndrome AHI: 16.6 Reason for follow up: first compliance (10/16) Equipment type: CPAP Equipment obtained from: Other ([employer]) Prior sleep studies: No Year and Where[facility] Type of Sleep Study: Polysomnography HPI additional information: HPI: Mr. Monson was diagnosed to have moderate obstructive sleep apnea-hypopnea syndrome and returns today for follow up of CPAP therapy. The patient purchased the device from [employer] and was fitted with a full face mask. He uses the device nightly and all through the night. The compliance report shows that he uses the device 30 nights out of the past 30 nights, averaging 8.7 hours a night. He complains of aerophagia and having to wear the mask tightly but no particular problem with the device such as soreness on the face, dry nose, epistaxis, nasal congestion or headache. He thinks that the pressure of 5 - 15 cmH2O is alright. On the CPAP therapy he notices improvement in his sleep quality, and that he wakes up feeling fresher in the morning and more awake/alert during the day. His notices no snore at all. [place] Sleepiness Scale score is 4. The average residual AHI is 3.4; and average time in large leak per day is 0 minutes a night. The 90th percentile pressure is 13.8 cmH2O. CPAP Compliance Data - Data Reviewed with Patient Average duration of nightly device use: 8 h 42 min Compliance rate %: 100 Current pressure setting (cmH2O): 5-15 Average residual AHI: 3.4 Subjective Patient concerns: reports: aerophagia, mask discomfort, air blowing in eyes, other (headache) Initial [place] Sleepiness Scale score: 5 (in 2019) Current [place] Sleepiness Scale score: 4 (in 2020) Allergies and Home Medications Drug allergies reviewed: Yes Home medication list reviewed: Yes Review of Systems Review of systems same as previous: Yes Physical Exam Height: 5 ft 8 in Weight: 252 lb Body Mass Index: 38.2 BMI Classification: Obese Impression and Plan IMPRESSION: 1. Obstructive Sleep Apnea-Hypopnea Syndrome, moderate (AHI = 16.6), with the patient doing well on nasal CPAP therapy. He has excellent compliance and significant clinical benefits. The current pressure appears effective but requires wearing the mask tightly and causes aerophagia. Overall, he is very satisfied with treatment and plans to continue with it long-term. I will lower the pressure for his comfort. PLAN: 1. Lower autoCPAP to 5 - 11 cm H2O. 2. Try to lose weight 3. Return in one year for follow up or earlier if there is any problem with the treatment. Counseling Topics: Weight loss health impact Visit Type: In Office Time Spent with Patient (minutes): 15 Provider Statement: I spent 100% of the Face to Face Visit with the patient with greater than 50% spent counseling the patient and coordination of care.
== END 2020-11-25 14:33 | disposition home or self-care (01) ==
LOC: SC 14:32
PROVIDERS: ATTEND Internal Medicine Pulmonary Disease
DX: G47.33 Obstructive sleep apnea (adult) (pediatric) (principal); E66.9 Obesity, unspecified; Z68.38 Body mass index [BMI] 38.0-38.9, adult
CPT/HCPCS: 99212; G0463

== ENCOUNTER 2020-12-23 08:48 | Outpatient (CLI) | payer MEDICARE, OTHER ==
--- NOTE | 2020-12-24 08:46 | SLEEP CARE CONSULTATION ---
Information from patient questionnaire entered by Haydee Hansen. I have reviewed and concur with the information entered by Haydee Hansen. This document represents the service I personally performed and the decisions made by me, William Davidson MD, [facility]. History of Present Illness Service Date and Time: 12/23/2020 0848 Previous diagnosis: Moderate, Obstructive Sleep Apnea-Hypopnea Syndrome AHI: 16.6 (in 2020) Reason for follow up: one month Equipment type: CPAP Prior sleep studies: Yes Year and Where: 2020 - [facility] Type of Sleep Study: Polysomnography HPI additional information: Mr. Monson was diagnosed to have moderate obstructive sleep apnea-hypopnea syndrome and returns today for follow up of CPAP therapy. The patient purchased the device from [employer] and was fitted with a full face mask. He uses the device nightly and all through the night. The compliance report shows that he uses the device 30 nights out of the past 30 nights, averaging 8.2 hours a night. He complains of no particular problem with the device such as soreness on the face, dry nose, epistaxis, nasal congestion or headache. His aerophagia improved. He thinks that the pressure of 5 - 11 cmH2O is alright (lowered last month for aerophagia). On the CPAP therapy he notices improvement in his sleep quality, and that he wakes up feeling fresher in the morning and more awake/alert during the day. His notices no snore at all. [place] Sleepiness Scale score is 4. The average residual AHI is 5.5 (was 3.4); and average air leak is 0.2 L/minute. The 90th percentile pressure is 10.9 cmH2O. CPAP Compliance Data - Data Reviewed with Patient Average duration of nightly device use: 8 hr 14 min Compliance rate %: 100 Current pressure setting (cmH2O): 5-11 Humidity settin Average residual AHI: 5.7 Subjective Initial [place] Sleepiness Scale score: 5 (in 2019) Current [place] Sleepiness Scale score: 0 Allergies and Home Medications Drug allergies reviewed: Yes Home medication list reviewed: Yes Review of Systems Review of systems same as previous: Yes Physical Exam Height: 5 ft 8 in Weight: 252 lb Body Mass Index: 38.2 BMI Classification: Obese Impression and Plan IMPRESSION: 1. Obstructive Sleep Apnea-Hypopnea Syndrome, moderate (AHI = 16.6), with the patient doing well on nasal CPAP therapy. He has excellent compliance and significant clinical benefits. The current pressure appears slightly ineffective but more comfortable. Overall, he is very satisfied with treatment and plans to continue with it long-term. I will leave the pressure the same. PLAN: 1. Leave autoCPAP at 5 - 11 cm H2O. 2. Try to lose weight 3. Return in one year for follow up or earlier if there is any problem with the treatment. Follow up recommended for: Weight management Visit Type: In Office Time Spent with Patient (minutes): 15 Provider Statement: I spent 100% of the Face to Face Visit with the patient with greater than 50% spent counseling the patient and coordination of care.
== END 2020-12-23 08:49 | disposition home or self-care (01) ==
LOC: SC 08:48
PROVIDERS: ATTEND Internal Medicine Pulmonary Disease
DX: G47.33 Obstructive sleep apnea (adult) (pediatric) (principal); E66.9 Obesity, unspecified; Z68.38 Body mass index [BMI] 38.0-38.9, adult
CPT/HCPCS: 99212; G0463

== ENCOUNTER 2021-07-26 09:07 | Outpatient (CLI) | payer MEDICARE, OTHER ==
[2021-07-26 13:47] LABS: BASOPHILS % (AUTO) 0.8 %; EOSINOPHILS # (AUTO) 0.2 10^3/uL (0.0-0.7); EOSINOPHILS % (AUTO) 3.2 %; HCT - HEMATOCRIT 35.4 % (42.0-52.0); HGB - HEMOGLOBIN 11.3 g/dL (14.0-18.0); LYMPHOCYTES # (AUTO) 1.7 10^3/uL (1.5-3.5); LYMPHOCYTES % (AUTO) 33.6 %; MEAN CORPUSCULAR HGB CONC 31.9 g/dL (32.0-36.0); MEAN CORPUSCULAR VOLUME 90.8 fL (80.0-94.0); MEAN PLATELET VOLUME 9.9 fL (7.4-11.4); MONOCYTES # (AUTO) 0.5 10^3/uL (0.0-1.0); MONOCYTES % (AUTO) 9.5 %; NEUTROPHILS # (AUTO) 2.7 10^3/uL (1.5-6.6); NEUTROPHILS % (AUTO) 52.7 %; PLT - PLATELET COUNT 203 10^3/uL (130-450); RED CELL DISTRIBUTION WIDTH 13.4 % (12.0-15.0); WHITE BLOOD COUNT 5.1 x10^3/uL (4.8-10.8)
[2021-07-26 14:02] LABS: ALBUMIN 4.2 g/dL (3.2-5.5); ALBUMIN/GLOBULIN RATIO 1.5 (1.0-2.2); ALKALINE PHOSPHATASE 42 IU/L (42-121); ALT ALANINE AMINOTRANSFERASE 23 IU/L (10-60); AST ASPARTATE AMINOTRANSFERASE 17 IU/L (10-42); BILIRUBIN,TOTAL 1.2 mg/dL (0.2-1.0); BUN - BLOOD UREA NITROGEN 40 mg/dL (6-20); CARBON DIOXIDE - CO2 22 mmol/L (21-32); CHLORIDE 108 mmol/L (101-111); CHOL/HDL RATIO 2.2 (<5.0); CHOLESTEROL 87 mg/dL; CREATININE 2.5 mg/dL (0.6-1.2); GFR - MDRD 25 (>89); GLUCOSE 124 mg/dL (70-100); HDL CHOLESTEROL 39 mg/dL; LDL CHOLESTEROL,CALCULATED 26 mg/dL; LDL/HDL RATIO 0.7 (<3.6); POTASSIUM 4.8 mmol/L (3.5-5.0); SODIUM 140 mmol/L (135-145); TRIGLYCERIDES 108 mg/dL; VLDL CHOLESTEROL 22 mg/dL
[2021-07-26 22:15] LABS: ESTIMATED AVERAGE GLUCOSE 160 mg/dL (70-100); HEMOGLOBIN A1c% 7.2 % (4.27-6.07)
== END 2021-07-26 09:08 | disposition home or self-care (01) ==
LOC: LAB.N 09:07
PROVIDERS: ATTEND Physician Assistant
DX: E11.22 Type 2 diabetes mellitus with diabetic chronic kidney disease (principal); N18.4 Chronic kidney disease, stage 4 (severe); E03.9 Hypothyroidism, unspecified; E78.5 Hyperlipidemia, unspecified
CPT/HCPCS: 36415; 80053; 80061; 83036; 83721; 84443; 85025

== ENCOUNTER 2021-08-27 08:00 | Outpatient (CLI) | payer MEDICARE, OTHER | END 2021-08-27 23:59 | LOC: LAB.N 08:00 | PROVIDERS: ATTEND Family Medicine | DX: R09.81 Nasal congestion (principal); Z20.822 Contact with and (suspected) exposure to COVID-19 ==

== ENCOUNTER 2021-10-24 09:41 | Outpatient (CLI) | payer MEDICARE, OTHER ==
[2021-10-24 12:25] LABS: ESTIMATED AVERAGE GLUCOSE 151 mg/dL (70-100); HEMOGLOBIN A1c% 6.9 % (4.27-6.07)
[2021-10-24 12:45] LABS: CHOL/HDL RATIO 2.7 (<5.0); CHOLESTEROL 96 mg/dL; HDL CHOLESTEROL 36 mg/dL; LDL CHOLESTEROL,CALCULATED 41 mg/dL; LDL/HDL RATIO 1.1 (<3.6); TRIGLYCERIDES 94 mg/dL; VLDL CHOLESTEROL 19 mg/dL
== END 2021-10-24 09:42 | disposition home or self-care (01) ==
LOC: LAB.N 09:41
PROVIDERS: ATTEND Physician Assistant
DX: E11.9 Type 2 diabetes mellitus without complications (principal); E78.5 Hyperlipidemia, unspecified
CPT/HCPCS: 36415; 80061; 83036; 83721

== ENCOUNTER 2021-12-25 11:01 | Outpatient (CLI) | payer MEDICARE, OTHER ==
[2021-12-25 17:53] LABS: ALBUMIN 3.7 g/dL (3.2-5.5); ALBUMIN/GLOBULIN RATIO 1.4 (1.0-2.2); BILIRUBIN,TOTAL 0.5 mg/dL (0.2-1.0); CALCIUM 8.9 mg/dL (8.5-10.3); CREATININE 2.1 mg/dL (0.6-1.2); POTASSIUM 4.8 mmol/L (3.5-5.0); TOTAL PROTEIN 6.4 g/dL (6.7-8.2)
== END 2021-12-25 11:02 | disposition home or self-care (01) ==
LOC: LAB.N 11:01
PROVIDERS: ATTEND Physician Assistant
DX: N18.4 Chronic kidney disease, stage 4 (severe) (principal)
CPT/HCPCS: 36415; 80053

== ENCOUNTER 2022-01-12 09:42 | Outpatient (CLI) | payer MEDICARE, OTHER ==
[2022-01-12 10:16] VITALS: BP 126/70
--- NOTE | 2022-01-12 10:16 | SLEEP CARE CONSULTATION ---
Information from patient questionnaire entered by Odilon Rosales MA. I have reviewed and concur with the information entered by Odilon Rosales MA. This document represents the service I personally performed and the decisions made by me, William Davidson MD, [facility]. History of Present Illness Service Date and Time: 01/12/2022 0942 Previous diagnosis: Moderate, Obstructive Sleep Apnea-Hypopnea Syndrome AHI: 16.6 (in 2020) Reason for follow up: annual (LAST SEEN 12/23/2020, [facility],) Equipment type: CPAP Prior sleep studies: Yes Year and Where: 2020 - [facility] Type of Sleep Study: Polysomnography HPI additional information: Mr. Monson was diagnosed to have moderate obstructive sleep apnea-hypopnea syndrome and returns today for follow up of CPAP therapy. The patient purchased the device from [employer] and was fitted with a full face mask. He continues to use the device nightly and all through the night. The compliance report shows that he uses the device 354 nights out of the past 365 nights, averaging 8.2 hours a night. He complains of no particular problem with the device such as soreness on the face, dry nose, epistaxis, nasal congestion or headache. His aerophagia improved. He thinks that the pressure of 5 - 11 cmH2O is alright (lowered last month for aerophagia). On the CPAP therapy he notices improvement in his sleep quality, and that he wakes up feeling fresher in the morning and more awake/alert during the day. [place] Sleepiness Scale score is 0. The average residual AHI is 4.9 (was 5.5); and average air leak is 1.1 L/minute. The 90th percentile pressure is 10.7 cmH2O. Sleep Study - Results Type of Sleep Study: Polysomnography Prior sleep studies: Yes Year and Where: 2020 - [facility] CPAP Compliance Data - Data Reviewed with Patient Average duration of nightly device use: 8 HOURS 57 MINUTES Compliance rate %: 96 Current pressure setting (cmH2O): 5-11 Average residual AHI: 3.9 Central apnea: .3 Obstructive apnea: 1.8 Average large leak: 14.1 Subjective Initial [place] Sleepiness Scale score: 5 (in 2019) Current [place] Sleepiness Scale score: 0 Allergies and Home Medications Known drug allergies: Yes (CONTAST, IODINE) Drug allergies reviewed: Yes Home medication list reviewed: Yes Allergy and home medication list: Allergies IV dye Allergy (Severe, Uncoded 12/09/18 12:40) anaphylactic Review of Systems Review of systems same as previous: Yes Physical Exam Vital signs obtained and entered by: Chin ROSALES CMA AAKANA Blood Pressure: 126/70 (LEFT, PULSE 86, RESP 20, ) Heart Rate: 82 O2 Saturation: 97 (N95 MASK) Height: 5 ft 8 in Weight: 220 lb Body Mass Index: 33.4 BMI Classification: Obese Impression and Plan IMPRESSION: 1. Obstructive Sleep Apnea-Hypopnea Syndrome, moderate (AHI = 16.6), with the patient continuing to do well on nasal CPAP therapy. He has excellent compliance and significant clinical benefits. The current pressure appears slightly ineffective but more comfortable. Overall, he is very satisfied with treatment and plans to continue with it long-term. I will leave the pressure the same. PLAN: 1. Leave autoCPAP at 5 - 11 cm H2O. 2. Try to lose weight 3. Return in one year for follow up or earlier if there is any problem with the treatment. Follow up with Sleep Care in: 1 year Visit Type: In Office Time Spent with Patient (minutes): 15 Provider Statement: I spent 100% of the Face to Face Visit with the patient with greater than 50% spent counseling the patient and coordination of care.
== END 2022-01-12 09:43 | disposition home or self-care (01) ==
LOC: SC 09:42
PROVIDERS: ATTEND Internal Medicine Pulmonary Disease
DX: G47.33 Obstructive sleep apnea (adult) (pediatric) (principal); E66.9 Obesity, unspecified; Z68.33 Body mass index [BMI] 33.0-33.9, adult
CPT/HCPCS: 99212; G0463

== ENCOUNTER 2022-02-23 09:37 | Outpatient (CLI) | payer MEDICARE, OTHER ==
[2022-02-23 12:04] LABS: CALCIUM 9.1 mg/dL (8.5-10.3); CREATININE 2.3 mg/dL (0.6-1.2); POTASSIUM 4.4 mmol/L (3.5-5.0)
== END 2022-02-23 09:38 | disposition home or self-care (01) ==
LOC: LAB.N 09:37
PROVIDERS: ATTEND Physician Assistant
DX: L60.0 Ingrowing nail (principal)
CPT/HCPCS: 36415; 80048

== ENCOUNTER 2022-08-27 16:46 | Outpatient (CLI) | payer MEDICARE, OTHER ==
--- NOTE | 2022-08-28 11:31 | Ultrasound Report ---
PROCEDURE: Retroperitoneal INDICATIONS: KIDNEY DYSFUNCTION TECHNIQUE: Real-time scanning was performed of the retroperitoneal organs, with image documentation. COMPARISON: None. FINDINGS: Kidneys: Kidneys are normal in size. Right kidney measures 9.2 cm long; left kidney measures 9.2 cm long. Right renal cortical thickness is 1.4 cm; left renal cortical thickness is 1.6 cm. No solid masses, hydronephrosis, or nephrolithiasis. Renal cortex is echogenic bilaterally Bladder: Pre-void bladder volume is 53 mL. Post-void residual is 50 mL. Pre-void images demonstrat e no intraluminal masses or stones. On pre-void images, bilateral ureteral jets are noted with color Doppler interrogation. (Of note, ureteral jets may not be detectable in up to 25% of cases due to i nsufficient differences in specific gravity between ureteral and bladder urine). Miscellaneous: Prostate measures 5.1 x 4.7 x 4.8 cm IMPRESSION: 1. Echogenic renal parenchyma consistent with medical renal disease. No hydronephrosis. 2. 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
== END 2022-08-27 16:47 | disposition home or self-care (01) ==
LOC: DI 16:46
PROVIDERS: ATTEND Internal Medicine Nephrology
DX: N28.9 Disorder of kidney and ureter, unspecified (principal); N13.8 Other obstructive and reflux uropathy; N40.1 Benign prostatic hyperplasia with lower urinary tract symptoms

== ENCOUNTER 2022-09-10 08:32 | Outpatient (CLI) | payer MEDICARE, OTHER ==
[2022-09-10 12:08] LABS: BASOPHILS # (AUTO) 0.1 10^3/uL (0.0-0.1); BASOPHILS % (AUTO) 0.9 %; EOSINOPHILS # (AUTO) 0.2 10^3/uL (0.0-0.7); EOSINOPHILS % (AUTO) 3.4 %; HGB - HEMOGLOBIN 11.1 g/dL (14.0-18.0); LYMPHOCYTES # (AUTO) 1.6 10^3/uL (1.5-3.5); MEAN CORPUSCULAR HEMOGLOBIN 28.5 pg (27.0-31.0); MEAN CORPUSCULAR HGB CONC 31.7 g/dL (32.0-36.0); MEAN PLATELET VOLUME 9.7 fL (7.4-11.4); MONOCYTES # (AUTO) 0.5 10^3/uL (0.0-1.0); MONOCYTES % (AUTO) 8.4 %; NEUTROPHILS # (AUTO) 3.3 10^3/uL (1.5-6.6); NEUTROPHILS % (AUTO) 58.1 %; PLT - PLATELET COUNT 237 10^3/uL (130-450); RED BLOOD COUNT 3.89 10^6/uL (4.70-6.10); RED CELL DISTRIBUTION WIDTH 13.3 % (12.0-15.0); WHITE BLOOD COUNT 5.6 x10^3/uL (4.8-10.8)
[2022-09-10 12:27] LABS: THYROID STIMULATING HORMONE 1.66 uIU/mL (0.34-5.60)
[2022-09-10 12:34] LABS: ALBUMIN 3.9 g/dL (3.2-5.5); ALBUMIN/GLOBULIN RATIO 1.3 (1.0-2.2); ALKALINE PHOSPHATASE 42 IU/L (42-121); ALT ALANINE AMINOTRANSFERASE 20 IU/L (10-60); AST ASPARTATE AMINOTRANSFERASE 16 IU/L (10-42); BILIRUBIN,TOTAL 0.8 mg/dL (0.2-1.0); BUN - BLOOD UREA NITROGEN 34 mg/dL (6-20); CALCIUM 9.6 mg/dL (8.5-10.3); CARBON DIOXIDE - CO2 22 mmol/L (21-32); CHLORIDE 109 mmol/L (101-111); CHOLESTEROL 86 mg/dL; CREATININE 2.5 mg/dL (0.6-1.2); GFR - MDRD 25 (>89); GLUCOSE 110 mg/dL (70-100); HDL CHOLESTEROL 29 mg/dL; LDL CHOLESTEROL,CALCULATED 35 mg/dL; LDL/HDL RATIO 1.2 (<3.6); POTASSIUM 4.4 mmol/L (3.5-5.0); SODIUM 140 mmol/L (135-145); TOTAL PROTEIN 6.8 g/dL (6.7-8.2); TRIGLYCERIDES 111 mg/dL; VLDL CHOLESTEROL 22 mg/dL
[2022-09-10 12:43] LABS: CREATININE,URINE 110.8 mg/dL; MICROALBUM/CREATININE RATIO,UR 54.2 ug/mg (<30.0)
[2022-09-10 12:58] LABS: ESTIMATED AVERAGE GLUCOSE 140 mg/dL (70-100); HEMOGLOBIN A1c% 6.5 % (4.27-6.07)
== END 2022-09-10 08:33 | disposition home or self-care (01) ==
LOC: LAB.N 08:32
PROVIDERS: ATTEND Family Medicine
DX: I12.9 Hypertensive chronic kidney disease with stage 1 through stage 4 chronic kidney disease, or unspecified chronic kidney disease (principal); E11.22 Type 2 diabetes mellitus with diabetic chronic kidney disease; N18.4 Chronic kidney disease, stage 4 (severe); E03.9 Hypothyroidism, unspecified; E78.5 Hyperlipidemia, unspecified; D63.1 Anemia in chronic kidney disease
CPT/HCPCS: 36415; 80053; 80061; 82043; 82570; 83036; 83721; 84443; 85025

== ENCOUNTER 2022-10-08 11:07 | Outpatient (CLI) | payer MEDICARE, OTHER ==
[2022-10-08 17:35] LABS: BASOPHILS % (AUTO) 0.6 %; EOSINOPHILS # (AUTO) 0.2 10^3/uL (0.0-0.7); EOSINOPHILS % (AUTO) 3.1 %; HGB - HEMOGLOBIN 10.6 g/dL (14.0-18.0); LYMPHOCYTES # (AUTO) 1.6 10^3/uL (1.5-3.5); LYMPHOCYTES % (AUTO) 34.1 %; MEAN CORPUSCULAR HEMOGLOBIN 28.6 pg (27.0-31.0); MEAN CORPUSCULAR HGB CONC 31.2 g/dL (32.0-36.0); MEAN CORPUSCULAR VOLUME 91.6 fL (80.0-94.0); MEAN PLATELET VOLUME 10.1 fL (7.4-11.4); MONOCYTES # (AUTO) 0.4 10^3/uL (0.0-1.0); MONOCYTES % (AUTO) 7.5 %; NEUTROPHILS # (AUTO) 2.6 10^3/uL (1.5-6.6); NEUTROPHILS % (AUTO) 54.5 %; PLT - PLATELET COUNT 199 10^3/uL (130-450); RED BLOOD COUNT 3.71 10^6/uL (4.70-6.10); RED CELL DISTRIBUTION WIDTH 13.6 % (12.0-15.0); WHITE BLOOD COUNT 4.8 x10^3/uL (4.8-10.8)
[2022-10-08 17:52] LABS: CALCIUM 9.4 mg/dL (8.5-10.3); CREATININE 2.2 mg/dL (0.6-1.2); PHOSPHORUS 3.2 mg/dL (2.5-4.6); POTASSIUM 4.8 mmol/L (3.5-5.0)
== END 2022-10-08 11:08 | disposition home or self-care (01) ==
LOC: LAB.N 11:07
PROVIDERS: ATTEND Internal Medicine Nephrology
DX: N05.9 Unspecified nephritic syndrome with unspecified morphologic changes (principal); I50.32 Chronic diastolic (congestive) heart failure; N25.81 Secondary hyperparathyroidism of renal origin; D70.9 Neutropenia, unspecified; D63.1 Anemia in chronic kidney disease
CPT/HCPCS: 36415; 80048; 83880; 83970; 84100; 85025

== ENCOUNTER 2022-12-08 08:24 | Outpatient (CLI) | payer MEDICARE, OTHER ==
[2022-12-08 12:01] LABS: BASOPHILS # (AUTO) 0.1 10^3/uL (0.0-0.1); BASOPHILS % (AUTO) 0.9 %; EOSINOPHILS # (AUTO) 0.1 10^3/uL (0.0-0.7); EOSINOPHILS % (AUTO) 2.4 %; HCT - HEMATOCRIT 34.9 % (42.0-52.0); HGB - HEMOGLOBIN 11.1 g/dL (14.0-18.0); LYMPHOCYTES # (AUTO) 1.9 10^3/uL (1.5-3.5); MEAN CORPUSCULAR HEMOGLOBIN 28.8 pg (27.0-31.0); MEAN CORPUSCULAR HGB CONC 31.8 g/dL (32.0-36.0); MEAN CORPUSCULAR VOLUME 90.4 fL (80.0-94.0); MEAN PLATELET VOLUME 9.8 fL (7.4-11.4); MONOCYTES # (AUTO) 0.4 10^3/uL (0.0-1.0); MONOCYTES % (AUTO) 7.6 %; NEUTROPHILS # (AUTO) 3.2 10^3/uL (1.5-6.6); NEUTROPHILS % (AUTO) 55.8 %; PLT - PLATELET COUNT 261 10^3/uL (130-450); RED BLOOD COUNT 3.86 10^6/uL (4.70-6.10); RED CELL DISTRIBUTION WIDTH 13.3 % (12.0-15.0); WHITE BLOOD COUNT 5.8 x10^3/uL (4.8-10.8)
[2022-12-08 12:18] LABS: ESTIMATED AVERAGE GLUCOSE 128 mg/dL (70-100); HEMOGLOBIN A1c% 6.1 % (4.27-6.07)
[2022-12-08 12:33] LABS: ALBUMIN/GLOBULIN RATIO 1.5 (1.0-2.2); BILIRUBIN,TOTAL 0.5 mg/dL (0.2-1.0); CALCIUM 9.5 mg/dL (8.5-10.3); CREATININE 2.7 mg/dL (0.6-1.2); POTASSIUM 4.1 mmol/L (3.5-5.0); TOTAL PROTEIN 6.7 g/dL (6.7-8.2)
[2022-12-08 12:43] LABS: THYROID STIMULATING HORMONE 3.32 uIU/mL (0.34-5.60)
== END 2022-12-08 08:25 | disposition home or self-care (01) ==
LOC: LAB.N 08:24
PROVIDERS: ATTEND Family Medicine
DX: I12.9 Hypertensive chronic kidney disease with stage 1 through stage 4 chronic kidney disease, or unspecified chronic kidney disease (principal); N18.9 Chronic kidney disease, unspecified; E08.22 Diabetes mellitus due to underlying condition with diabetic chronic kidney disease; D64.9 Anemia, unspecified; E03.9 Hypothyroidism, unspecified
CPT/HCPCS: 36415; 80053; 82043; 83036; 84443; 85025

== ENCOUNTER 2023-01-05 12:16 | Outpatient (CLI) | payer MEDICARE, OTHER ==
[2023-01-05 17:42] LABS: BASOPHILS # (AUTO) 0.1 10^3/uL (0.0-0.1); BASOPHILS % (AUTO) 1.2 %; EOSINOPHILS # (AUTO) 0.4 10^3/uL (0.0-0.7); EOSINOPHILS % (AUTO) 6.7 %; HCT - HEMATOCRIT 32.3 % (42.0-52.0); HGB - HEMOGLOBIN 10.3 g/dL (14.0-18.0); LYMPHOCYTES # (AUTO) 1.4 10^3/uL (1.5-3.5); LYMPHOCYTES % (AUTO) 23.4 %; MEAN CORPUSCULAR HGB CONC 31.9 g/dL (32.0-36.0); MEAN PLATELET VOLUME 10.4 fL (7.4-11.4); MONOCYTES # (AUTO) 0.6 10^3/uL (0.0-1.0); MONOCYTES % (AUTO) 9.6 %; NEUTROPHILS # (AUTO) 3.5 10^3/uL (1.5-6.6); NEUTROPHILS % (AUTO) 58.9 %; PLT - PLATELET COUNT 238 10^3/uL (130-450); RED BLOOD COUNT 3.55 10^6/uL (4.70-6.10); RED CELL DISTRIBUTION WIDTH 13.3 % (12.0-15.0); WHITE BLOOD COUNT 5.9 x10^3/uL (4.8-10.8)
[2023-01-05 18:00] LABS: CALCIUM 8.5 mg/dL (8.5-10.3); CREATININE 2.5 mg/dL (0.6-1.2); POTASSIUM 4.2 mmol/L (3.5-5.0)
== END 2023-01-05 12:17 | disposition home or self-care (01) ==
LOC: LAB.N 12:16
PROVIDERS: ATTEND Internal Medicine Nephrology
DX: N05.9 Unspecified nephritic syndrome with unspecified morphologic changes (principal); D70.9 Neutropenia, unspecified; D63.1 Anemia in chronic kidney disease
CPT/HCPCS: 36415; 80048; 85025

== ENCOUNTER 2023-01-18 10:16 | Outpatient (CLI) | payer MEDICARE, OTHER ==
--- NOTE | 2023-01-18 10:48 | SLEEP CARE CONSULTATION ---
Information from patient questionnaire entered by Juan Montague. I have reviewed and concur with the information entered by Juan Montague. This document represents the service I personally performed and the decisions made by me, William Davidson MD, [facility]. History of Present Illness Service Date and Time: 01/18/2023 1016 Previous diagnosis: Moderate, Obstructive Sleep Apnea-Hypopnea Syndrome AHI: 16.6 (in 2020) Reason for follow up: annual (LAST SEEN 12/2021) Equipment type: CPAP (RESMED) Prior [facility]: Yes [facility] Type of Sleep Study: Polysomnography HPI additional information: Mr. Monson was diagnosed to have moderate obstructive sleep apnea-hypopnea syndrome and returns today for follow up of CPAP therapy. The patient purchased the device from [employer] and was fitted with a full face mask. He continues to use the device nightly and all through the night. The compliance report shows that he uses the device 361 nights out of the past 365 nights, averaging 8.6 hours a night. The > 4 hour compliance rate for the past 30 days is 97%. He complains of no particular problem with the device such as soreness on the face, dry nose, epistaxis, nasal congestion or headache. His aerophagia improved. He thinks that the pressure of 5 - 11 cmH2O is alright (lowered last year for aerophagia). On the CPAP therapy he notices improvement in his sleep quality, and that he wakes up feeling fresher in the morning and more elicia ke/alert during the day. [place] Sleepiness Scale score is 1. The average residual AHI is 3.1 (was 5.5); and average air leak is 1.3 L/minute. The 90th percentile pressure is 10.6 cmH2O. Sleep Study - Results Type of Sleep Study: Polysomnography [facility] sleep [facility]: Yes [facility] CP[facility] Compliance Data - Data Reviewed with Patient Average duration of nightly device use: 8HRS 22MIN Compliance rate %: 97 (07/19/22-01/14/23) Current pressure setting (cmH2O): 5-11 Average residual AHI: 2.9 Subjective Initial [place] Sleepiness Scale score: 5 (in 2019) Current [place] Sleepiness Scale score: 1 (01/18/23) Allergies and Home Medications Drug allergies reviewed: Yes Home medication list reviewed: Yes Allergy and home medication list: Allergies IV dye Allergy (Severe, Uncoded 01/15/23 09:27) anaphylactic Review of Systems Review of systems same as previous: Yes Physical Exam Vital signs obtained and entered by: JUAN Gonzalez MA Blood Pressure: 120/60 (LEFT ARM) Cuff size: regular Heart Rate: 67 O2 Saturation: 98 Height: 5 ft 8 in Weight: 194 lb 9.6 oz Body Mass Index: 29.5 BMI Classification: Overweight Impression and Plan IMPRESSION: 1. Obstructive Sleep Apnea-Hypopnea Syndrome, moderate (AHI = 16.6), with the patient continuing to do well on nasal CPAP therapy. He has excellent compliance and significant clinical benefits. The current pressure appears effective but comfortable. Overall, he is very satisfied with the treatment and plans to continue with it long-term. No adjustment is necessary today. PLAN: 1. Leave autoCPAP at 5 - 11 cm H2O. 2. Try to lose weight 3. Return in one year for follow up or earlier if there is any problem with the treatment. Counseling Topics: Weight control Follow up with Sleep Care in: 1 year Visit Type: In Office Time Spent with Patient (minutes): 15 Provider Statement: I spent 100% of the Face to Face Visit with the patient with greater than 50% spent counseling the patient and coordination of care.
[2023-01-18 10:50] VITALS: BP 120/60
== END 2023-01-18 10:17 | disposition home or self-care (01) ==
LOC: SC 10:16
PROVIDERS: ATTEND Internal Medicine Pulmonary Disease
DX: G47.33 Obstructive sleep apnea (adult) (pediatric) (principal); E66.3 Overweight; Z68.29 Body mass index [BMI] 29.0-29.9, adult
CPT/HCPCS: 99212; G0463

== ENCOUNTER 2023-02-22 08:52 | Outpatient (CLI) | payer MEDICARE, OTHER ==
[2023-02-22 12:07] LABS: BASOPHILS # (AUTO) 0.1 10^3/uL (0.0-0.1); EOSINOPHILS # (AUTO) 0.2 10^3/uL (0.0-0.7); EOSINOPHILS % (AUTO) 4.3 %; HCT - HEMATOCRIT 32.7 % (42.0-52.0); HGB - HEMOGLOBIN 10.4 g/dL (14.0-18.0); LYMPHOCYTES # (AUTO) 1.6 10^3/uL (1.5-3.5); LYMPHOCYTES % (AUTO) 31.4 %; MEAN CORPUSCULAR HEMOGLOBIN 28.3 pg (27.0-31.0); MEAN CORPUSCULAR HGB CONC 31.8 g/dL (32.0-36.0); MEAN CORPUSCULAR VOLUME 89.1 fL (80.0-94.0); MEAN PLATELET VOLUME 10.1 fL (7.4-11.4); MONOCYTES # (AUTO) 0.4 10^3/uL (0.0-1.0); MONOCYTES % (AUTO) 7.9 %; NEUTROPHILS # (AUTO) 2.7 10^3/uL (1.5-6.6); NEUTROPHILS % (AUTO) 55.2 %; PLT - PLATELET COUNT 220 10^3/uL (130-450); RED BLOOD COUNT 3.67 10^6/uL (4.70-6.10); RED CELL DISTRIBUTION WIDTH 13.8 % (12.0-15.0); WHITE BLOOD COUNT 4.9 x10^3/uL (4.8-10.8)
[2023-02-22 12:24] LABS: ALBUMIN 3.6 g/dL (3.2-5.5); ALBUMIN/GLOBULIN RATIO 1.2 (1.0-2.2); BILIRUBIN,TOTAL 0.8 mg/dL (0.2-1.0); CALCIUM 9.1 mg/dL (8.5-10.3); CREATININE 2.9 mg/dL (0.6-1.2); POTASSIUM 4.4 mmol/L (3.5-5.0); TOTAL PROTEIN 6.5 g/dL (6.7-8.2)
[2023-02-22 13:04] LABS: ESTIMATED AVERAGE GLUCOSE 123 mg/dL (70-100); HEMOGLOBIN A1c% 5.9 % (4.27-6.07)
[2023-02-22 14:05] LABS: THYROID STIMULATING HORMONE 1.97 uIU/mL (0.34-5.60)
== END 2023-02-22 08:53 | disposition home or self-care (01) ==
LOC: LAB.N 08:52
PROVIDERS: ATTEND Nurse Practitioner Family
DX: D63.8 Anemia in other chronic diseases classified elsewhere (principal); E03.9 Hypothyroidism, unspecified; E11.9 Type 2 diabetes mellitus without complications; I50.20 Unspecified systolic (congestive) heart failure
CPT/HCPCS: 36415; 80053; 83036; 83880; 84443; 85025

== ENCOUNTER 2023-06-12 09:11 | Outpatient (CLI) | payer MEDICARE, OTHER ==
[2023-06-12 19:02] LABS: BASOPHILS % (AUTO) 0.7 %; EOSINOPHILS # (AUTO) 0.2 10^3/uL (0.0-0.7); EOSINOPHILS % (AUTO) 2.8 %; HCT - HEMATOCRIT 33.2 % (42.0-52.0); HGB - HEMOGLOBIN 10.3 g/dL (14.0-18.0); LYMPHOCYTES # (AUTO) 1.5 10^3/uL (1.5-3.5); LYMPHOCYTES % (AUTO) 25.7 %; MEAN CORPUSCULAR HEMOGLOBIN 28.5 pg (27.0-31.0); MEAN CORPUSCULAR VOLUME 91.7 fL (80.0-94.0); MEAN PLATELET VOLUME 10.5 fL (7.4-11.4); MONOCYTES # (AUTO) 0.4 10^3/uL (0.0-1.0); MONOCYTES % (AUTO) 7.1 %; NEUTROPHILS # (AUTO) 3.7 10^3/uL (1.5-6.6); NEUTROPHILS % (AUTO) 63.5 %; PLT - PLATELET COUNT 201 10^3/uL (130-450); RED BLOOD COUNT 3.62 10^6/uL (4.70-6.10); WHITE BLOOD COUNT 5.8 x10^3/uL (4.8-10.8)
[2023-06-12 19:22] LABS: % IRON SATURATION 28 % (20-50); ALBUMIN 4.3 g/dL (3.2-5.5); ALBUMIN/GLOBULIN RATIO 2.4 (1.0-2.2); ALKALINE PHOSPHATASE 40 IU/L (42-121); ALT ALANINE AMINOTRANSFERASE 20 IU/L (10-60); AST ASPARTATE AMINOTRANSFERASE 17 IU/L (10-42); BILIRUBIN,TOTAL 0.5 mg/dL (0.2-1.0); BUN - BLOOD UREA NITROGEN 43 mg/dL (6-20); CALCIUM 9.1 mg/dL (8.5-10.3); CARBON DIOXIDE - CO2 21 mmol/L (21-32); CHLORIDE 112 mmol/L (101-111); CREATININE 3.1 mg/dL (0.6-1.3); GFR - MDRD 19 (>89); GLUCOSE 117 mg/dL (74-104); IRON 54 ug/dL (50-212); POTASSIUM 4.7 mmol/L (3.5-4.5); SODIUM 139 mmol/L (135-145); TOTAL IRON BINDING CAPACITY 192 ug/dL (250-450); TOTAL PROTEIN 6.1 g/dL (6.4-8.9); TRANSFERRIN 137 mg/dL (203-362)
[2023-06-12 19:33] LABS: THYROID STIMULATING HORMONE 3.57 uIU/mL (0.34-5.60)
[2023-06-12 19:40] LABS: FERRITIN 259.2 ng/mL (23.9-336.2)
[2023-06-13 05:02] LABS: ESTIMATED AVERAGE GLUCOSE 120 mg/dL (70-100); HEMOGLOBIN A1c% 5.8 % (4.27-6.07)
== END 2023-06-12 09:12 | disposition home or self-care (01) ==
LOC: LAB.N 09:11
PROVIDERS: ATTEND Nurse Practitioner Family
DX: E11.22 Type 2 diabetes mellitus with diabetic chronic kidney disease (principal); N18.4 Chronic kidney disease, stage 4 (severe); E03.9 Hypothyroidism, unspecified; D64.9 Anemia, unspecified
CPT/HCPCS: 36415; 80053; 82607; 82728; 82746; 83036; 83540; 84439; 84443; 84466; 85025

== ENCOUNTER 2023-07-15 08:47 | Outpatient (CLI) | payer MEDICARE, OTHER ==
[2023-07-15 12:09] LABS: POTASSIUM 4.7 mmol/L (3.5-4.5)
== END 2023-07-15 08:48 | disposition home or self-care (01) ==
LOC: LAB.N 08:47
PROVIDERS: ATTEND Nurse Practitioner Family
DX: I10 Essential (primary) hypertension (principal)
CPT/HCPCS: 36415; 80048

== ENCOUNTER 2023-08-13 07:52 | Outpatient (CLI) | payer MEDICARE, OTHER ==
[2023-08-13 12:16] LABS: HCT - HEMATOCRIT 32.1 % (42.0-52.0); HGB - HEMOGLOBIN 10.1 g/dL (14.0-18.0); MEAN CORPUSCULAR HEMOGLOBIN 27.9 pg (27.0-31.0); MEAN CORPUSCULAR HGB CONC 31.5 g/dL (32.0-36.0); MEAN CORPUSCULAR VOLUME 88.7 fL (80.0-94.0); MEAN PLATELET VOLUME 9.8 fL (7.4-11.4); RED BLOOD COUNT 3.62 10^6/uL (4.70-6.10); RED CELL DISTRIBUTION WIDTH 13.6 % (12.0-15.0); WHITE BLOOD COUNT 5.7 x10^3/uL (4.8-10.8)
[2023-08-13 12:39] LABS: CREATININE 2.9 mg/dL (0.6-1.3); POTASSIUM 4.6 mmol/L (3.5-4.5)
== END 2023-08-13 07:53 | disposition home or self-care (01) ==
LOC: LAB.N 07:52
PROVIDERS: ATTEND Internal Medicine Nephrology
DX: E11.9 Type 2 diabetes mellitus without complications (principal); N05.9 Unspecified nephritic syndrome with unspecified morphologic changes; D70.9 Neutropenia, unspecified; D63.1 Anemia in chronic kidney disease
CPT/HCPCS: 36415; 80048; 85027

== ENCOUNTER 2023-10-14 08:52 | Emergency (ER) | payer MEDICARE, OTHER ==
[2023-10-14 09:45] LABS: BASOPHILS % (AUTO) 0.4 %; EOSINOPHILS # (AUTO) 0.2 10^3/uL (0.0-0.7); EOSINOPHILS % (AUTO) 2.2 %; HCT - HEMATOCRIT 33.3 % (42.0-52.0); HGB - HEMOGLOBIN 10.6 g/dL (14.0-18.0); LYMPHOCYTES % (AUTO) 14.6 %; MEAN CORPUSCULAR HEMOGLOBIN 28.6 pg (27.0-31.0); MEAN CORPUSCULAR HGB CONC 31.8 g/dL (32.0-36.0); MEAN PLATELET VOLUME 8.6 fL (7.4-11.4); MONOCYTES # (AUTO) 0.6 10^3/uL (0.0-1.0); MONOCYTES % (AUTO) 7.9 %; NEUTROPHILS # (AUTO) 5.2 10^3/uL (1.5-6.6); NEUTROPHILS % (AUTO) 74.6 %; PLT - PLATELET COUNT 223 10^3/uL (130-450); WHITE BLOOD COUNT 6.9 x10^3/uL (4.8-10.8)
[2023-10-14 09:58] LABS: ALBUMIN 4.1 g/dL (3.2-5.5); ALBUMIN/GLOBULIN RATIO 1.5 (1.0-2.2); BILIRUBIN,TOTAL 0.7 mg/dL (0.2-1.0); CALCIUM 8.9 mg/dL (8.5-10.3); POTASSIUM 4.3 mmol/L (3.5-4.5); TOTAL PROTEIN 6.8 g/dL (6.4-8.9)
--- NOTE | 2023-10-14 10:19 | ED Physician Documentation ---
PD HPI ABD PAIN - Stated complaint Stated Complaint: RT ABD/FLANK PX - Chief complaint Chief Complaint: Abd Pain - History obtained from History obtained from: Patient - History of Present Illness Timing - onset: How many days ago (2-3) Timing - duration: Days (2-3) Timing - details: Gradual onset, Still present Quality: Cramping, Aching, Pain Location: Periumbilical, RLQ, Suprapubic Radiation: Lower back. No: Right flank Improved by: No: BM Worsened by: No: Eating Associated symptoms: Nausea, Diarrhea (3-4 times). No: Fever, Constipation, Melena, Hematochezia Similar symptoms before: Has not had sx before Review of Systems Constitutional: denies: Fever, Chills Nose: denies: Rhinorrhea / runny nose, Congestion Throat: denies: Sore throat Respiratory: denies: Cough PD PAST MEDICAL HISTORY - Past Medical History Cardiovascular: Hypertension, High cholesterol Respiratory: Asthma Endocrine/Autoimmune: Type 1 diabetes, HyPOthyroidism - Past Surgical History Past Surgical History: Yes General: Hiatal hernia repair HEENT: Cataracts - Present Medications Home Medications: Ambulatory Orders Medication Instructions Recorded Confirmed Acetaminophen [Acetaminophen Extra 500 mg PO QID PRN #50 tablet 10/14/23 Strength] Amlodipine Besylate [Norvasc] 10 mg PO DAILY 10/14/23 10/14/23 Amox/Clav 875/125 [Augmentin] 1 each PO Q12H #14 tablet 10/14/23 Atorvastatin Calcium [Lipitor] 80 mg PO DAILY 10/14/23 10/14/23 Chlorthalidone 25 mg ORAL DAILY 10/14/23 10/14/23 HYDROcod/ACETAM 5/325 [[place] 5/325] 1 ea PO Q6H PRN #15 tablet 10/14/23 Levothyroxine [Synthroid] 100 mcg PO QDAC 10/14/23 10/14/23 Losartan Potassium 100 mg PO DAILY 10/14/23 10/14/23 Mirtazapine 30 mg PO QPM 10/14/23 10/14/23 Omeprazole 40 mg PO DAILY 10/14/23 10/14/23 Ondansetron Odt [Zofran] 4 mg TL Q6H PRN #10 tablet 10/14/23 Semaglutide [Ozempic] 0.5 mg SQ ONCE 10/14/23 10/14/23 - Allergies Allergies/Adverse Reactions: Allergies Allergy/AdvReac Type Severity Reaction Status Date / Time shellfish derived Allergy Anaphylaxis Verified 10/14/23 10:17 IV dye Allergy Severe anaphylacti Uncoded 10/14/23 10:17 c - Social History Does the pt smoke?: No Smoking Status: Never smoker Does the pt drink ETOH?: Yes Does the pt have substance abuse?: No - Immunizations Immunizations are current?: Yes - POLST Patient has POLST: No PD ED PE NORMAL - Vitals Vital signs reviewed: Yes - General General: Alert and oriented X 3, Well developed/nourished, Other (appears uncomfortable in lower abd. ) - Neck Neck: Supple, no meningeal sign, No adenopathy - Cardiac Cardiac: RRR, No murmur - Respiratory Respiratory: No respiratory distress, Clear bilaterally - Abdomen Abdomen: Normal bowel sounds, Soft, Non distended, Other (tendder lower abd midline and to the right. Some percussion and rebound tenderness. No CVA tenderness. ) - Male Male : Deferred - Rectal Rectal: Deferred - Back Back: No CVA TTP - Derm Derm: Normal color, Warm and dry, No rash Results - Vitals Vitals: Vital Signs - 24 hr 10/14/23 10/14/23 10/14/23 09:15 10:12 12:19 Temperature 36.4 C L Heart Rate 72 66 63 Respiratory 16 16 16 Rate Blood Pressure 127/53 L 147/68 H 123/57 L O2 Saturation 100 100 99 10/14/23 10/14/23 13:40 14:30 Temperature Heart Rate 61 60 Respiratory 16 16 Rate Blood Pressure 135/58 H 130/63 O2 Saturation 99 98 Oxygen O2 Source Room air - Labs Labs: Laboratory Tests 10/14/23 10/14/23 09:39 09:39 WBC 6.9 RBC 3.70 L Hgb 10.6 L Hct 33.3 L MCV 90.0 MCH 28.6 MCHC 31.8 L RDW 14.0 Plt Count 223 MPV 8.6 Neut # (Auto) 5.2 Lymph # (Auto) 1.0 L [place] # (Auto) 0.6 Eos # (Auto) 0.2 Baso # (Auto) 0.0 Absolute Nucleated RBC 0.00 Nucleated RBC % 0.0 Sodium 138 Potassium 4.3 Chloride 109 Carbon Dioxide 19 L Anion Gap 10.0 BUN 42 H Creatinine 3.0 H Estimated GFR (MDRD) 20 L Glucose 164 H Calcium 8.9 Total Bilirubin 0.7 AST 16 ALT 16 Alkaline Phosphatase 48 Total Protein 6.8 Albumin 4.1 Globulin 2.7 Albumin/Globulin Ratio 1.5 Lipase 13 - Rads (name of study) abd/pelvic CT Relevant Findings:: Prelim report reviewed (mid sigmoid diverticulitis / wall thickening with inflammation. No perforation. Adjacent area of apparent apiploic appendagitis. ), EMP independent interpretation of test PD Medical Decision Making - ED course Complexity details: reviewed results (Radiology reports 2 processes: diverticulitis acute, and epiploic appendagitis. Both could be hurting. Seems less likely for both at same time. Appendigitis would not cause dairrhea likely. Will treat mainly as divertic but the Tylenol and pain meds would be appropriate for other anyway.), re-evaluated patient (pain improvbed with IV meds. Avoiding NSAIDs due to h/o renal failure and stomach irritated easily with diet.), considered differential (lower abd/right pain concerning for appendicitis, right sided diverticulitis, bacterial colitis, mass, or ohter process. diarrhea concurrent would suggest GI but can get UA to assess. ), d/w patient Departure - Departure Disposition: 01 Home, Self Care Clinical Impression: Lower abdominal pain, Acute diverticulitis, Epiploic appendagitis Condition: Stable Record reviewed to determine appropriate education?: Yes Instructions: ED Diverticulitis Follow-Up: [facility] [Primary Care Provider] - Prescriptions: Acetaminophen [Acetaminophen Extra Strength] 500 mg PO QID PRN #50 tablet PRN Reason: Pain Amox/Clav 875/125 [Augmentin] 1 each PO Q12H #14 tablet HYDROcod/ACETAM 5/325 [[place] 5/325] 1 ea PO Q6H PRN #15 tablet PRN Reason: Pain Ondansetron Odt [Zofran] 4 mg TL Q6H PRN #10 tablet PRN Reason: Nausea / Vomiting Comments: Your CT scan shows an area of diverticulitis. There is also some inflammation around the omentum and the blood vessels to it that may be causing the pain as well. This is called epiploic appendagitis. However the appendagitis typically would not cause diarrhea and such so I presume most your symptoms are actually more the diverticulitis. Your appendix is normal. No other acute abnormality. Cysts regular hydration and continue usual medicines. Ondansetron if needed for nausea. Use Tylenol/acetaminophen 500 to 650 mg 4 times daily for pain initially. To that add hydrocodone/acetaminophen every 6 hours if needed. Since you do have impaired kidney function, avoid NSAIDs and be sure to stay well-hydrated. Augmentin antibiotic twice daily as directed for presumed diverticulitis. Recheck if not improving well over the next 2 to 3 days and resolved by 3 to 5 days. Return if worse. I sent your prescription to your preferred pharmacy. My narcotic instructions I am prescribing a short course of narcotic pain medication for you. These are potentially dangerous and addictive medications that should be used carefully. These medications may constipate you. Take an [id number] stool softener such as docusate twice daily with plenty of water while taking these medications. If you go 24 hours without a bowel movement, take [id number] MiraLAX, per package instructions. Do not drink or drive while taking these medications. If you received narcotic or sedating medications while in the emergency department do not drive for 24 hours. Store this medication in a safe, secure place and out of reach of children. It is a violation of federal law to give or sell this medication to another person or to use in a manner other than prescribed. The ED will not refill narcotic prescriptions, including prescriptions lost or stolen. You can dispose of unwanted medications at the [facility]'s office or at several pharmacies such as [facility]. Forms: PCP List Discharge Date/Time: 10/14/23 14:40
[2023-10-14] MEDS: ONDANSETRON 4 MG/2 ML VIAL IVP STA (10:39)
[2023-10-14] MEDS: HYDROmorphone 1 MG/ML CARPUJECT IVP STA ×2 (10:41→13:47)
[2023-10-14] MEDS: SODIUM CHLORIDE 0.9% 1,000 ML IV STA (10:49)
--- NOTE | 2023-10-14 12:19 | CT Report ---
PROCEDURE: Abdomen/Pelvis WO INDICATIONS: RLQ abd pain 2 days TECHNIQUE: A CT scan of the abdomen and pelvis was performed without the use of intravenous contrast. Images we re recorded and evaluated at appropriate window settings. Reformats: coronal and sagittal. For radiat ion dose reduction, the following was used: automated exposure control, adjustment of mA and/or kV ac cording to patient size. COMPARISON: None. FINDINGS: Image quality: Diagnostic. Lower chest: As are clear. There is a large hiatal hernia filled with food debris. Liver: No contour-deforming mass. Gallbladder and biliary tree: Bladder is unremarkable. No biliary ductal dilatation. Spleen: No splenomegaly. Pancreas: Pancreas is nearly completely replaced with fat. Adrenals: No adrenal nodule. Kidneys and ureters: No hydronephrosis. No renal cystic lesion which requires follow up. No solid mas s. There is moderate bilateral perinephric fat stranding which may be senescent in nature. Stomach, bowel and peritoneum: No bowel distension. No pathologic free fluid. The appendix is thin-wa lled. There are extensive sigmoid colon diverticular outpouchings. There is trace pericolonic fat str anding within the mid sigmoid colon (series 2/image 09). 2 fat lobules are noted within the left mida bdomen surrounded by mild fat stranding (series 2/image 66 and series 4/image 57). Lymph nodes: No central or retroperitoneal adenopathy. Vessels: No infrarenal aortic aneurysm. Entered atheromatous calcifications are present throughout th e abdominal aorta and iliac arteries. There is a calcified dissection flap within the infrarenal abdo bogdan aorta. Both lumens appear to fill with opacified contrast. This finding was likely present on t he comparison CT of the pelvis from 11/01/2017, although there is increased calcification of the inner dissection flap. PELVIS Reproductive organs: Unremarkable. Bladder: No wall thickness, accounting for underdistention. Pelvic lymph nodes: No pelvic adenopathy by size criteria. Bones: No aggressive osseous abnormality. Other: There is a moderate left fat-containing inguinal hernia. IMPRESSION: 1. No hydronephrosis nephrolithiasis, hydroureter, or ureterolithiasis. 2. Normal appendix. 3. Diverticulosis. Mild pericolonic fat stranding is present within the mid sigmoid colon which may r epresent early nonperforated diverticulitis. 4. 2 adjacent epiploic appendages with surrounding fat stranding as described above which may represe nt epiploic appendagitis. 5. Findings suspicious for a chronic-appearing, calcified, stable infrarenal abdominal aortic dissect ion. 6. Large, food debris filled hiatal hernia. Reviewed by: Roxanne Posadas MD on 10/14/2023 12:18 PM PST Approved by: Roxanne Posadas MD on 10/14/2023 12:18 PM PST Station ID: [id number]
[2023-10-14] MEDS: AMPICILLIN/SULBACTAM 1.5 GM in SODIUM CHLORIDE 0.9% MINIBAG 100 ML IV STA (13:17)
[2023-10-14] MEDS: ACETAMINOPHEN 500 MG TABLET PO STA (13:50)
[2023-10-14 14:48] VITALS: BP 130/63; O2SAT 98
== END 2023-10-14 14:40 | disposition home or self-care (01) ==
LOC: ED 08:52
DX: K57.32 Diverticulitis of large intestine without perforation or abscess without bleeding (principal); K63.89 Other specified diseases of intestine; I10 Essential (primary) hypertension; E10.9 Type 1 diabetes mellitus without complications; Z79.85 Long-term (current) use of injectable non-insulin antidiabetic drugs
CPT/HCPCS: 36415; 74176; 80053; 83690; 85025; 96365; 96375; 96376; 99284; A9270; J1170

== ENCOUNTER 2023-12-28 10:41 | Outpatient (CLI) | payer MEDICARE, OTHER ==
[2023-12-28 12:37] LABS: ALBUMIN/GLOBULIN RATIO 1.7 (1.0-2.2); BILIRUBIN,TOTAL 0.6 mg/dL (0.2-1.0); CALCIUM 9.2 mg/dL (8.5-10.3); CREATININE 2.1 mg/dL (0.6-1.3); POTASSIUM 4.6 mmol/L (3.5-4.5); TOTAL PROTEIN 6.4 g/dL (6.4-8.9)
== END 2023-12-28 10:42 | disposition home or self-care (01) ==
LOC: LAB.N 10:41
PROVIDERS: ATTEND Internal Medicine Nephrology
DX: E11.9 Type 2 diabetes mellitus without complications (principal); N05.9 Unspecified nephritic syndrome with unspecified morphologic changes
CPT/HCPCS: 36415; 80053

== ENCOUNTER 2024-02-02 09:55 | Outpatient (CLI) | payer MEDICARE, OTHER ==
[2024-02-02 11:48] LABS: EOSINOPHILS # (AUTO) 0.1 10^3/uL (0.0-0.7); EOSINOPHILS % (AUTO) 2.4 %; HCT - HEMATOCRIT 31.1 % (42.0-52.0); HGB - HEMOGLOBIN 10.2 g/dL (14.0-18.0); LYMPHOCYTES # (AUTO) 1.1 10^3/uL (1.5-3.5); LYMPHOCYTES % (AUTO) 27.5 %; MEAN CORPUSCULAR HEMOGLOBIN 29.3 pg (27.0-31.0); MEAN CORPUSCULAR HGB CONC 32.8 g/dL (32.0-36.0); MEAN CORPUSCULAR VOLUME 89.4 fL (80.0-94.0); MEAN PLATELET VOLUME 10.1 fL (7.4-11.4); MONOCYTES # (AUTO) 0.3 10^3/uL (0.0-1.0); MONOCYTES % (AUTO) 7.5 %; NEUTROPHILS # (AUTO) 2.5 10^3/uL (1.5-6.6); NEUTROPHILS % (AUTO) 61.4 %; PLT - PLATELET COUNT 198 10^3/uL (130-450); RED BLOOD COUNT 3.48 10^6/uL (4.70-6.10); WHITE BLOOD COUNT 4.1 x10^3/uL (4.8-10.8)
[2024-02-02 12:30] LABS: CALCIUM 9.2 mg/dL (8.5-10.3); CREATININE 3.2 mg/dL (0.6-1.3); PHOSPHORUS 3.9 mg/dL (2.5-5.0); POTASSIUM 4.4 mmol/L (3.5-4.5)
== END 2024-02-02 09:56 | disposition home or self-care (01) ==
LOC: LAB.N 09:55
PROVIDERS: ATTEND Internal Medicine Nephrology
DX: N05.9 Unspecified nephritic syndrome with unspecified morphologic changes (principal); N25.81 Secondary hyperparathyroidism of renal origin; E83.30 Disorder of phosphorus metabolism, unspecified; D70.9 Neutropenia, unspecified; D63.1 Anemia in chronic kidney disease
CPT/HCPCS: 36415; 80048; 83970; 84100; 85025

== ENCOUNTER 2024-03-20 14:36 | Outpatient (CLI) | payer MEDICARE, OTHER ==
--- NOTE | 2024-03-21 08:10 | SLEEP CARE CONSULTATION ---
Information from patient questionnaire entered by Juan Montague. I have reviewed and concur with the information entered by Juan Montague. This document represents the service I personally performed and the decisions made by me, William Davidson MD, [facility]. History of Present Illness Service Date and Time: 03/20/2024 1436 Previous diagnosis: Moderate, Obstructive Sleep Apnea-Hypopnea Syndrome AHI: 16.6 (in 2020) Reason for follow up: annual (LAST SEEN 12/2022) Equipment type: CPAP (RESMED) Prior sleep studies: Yes Year and Where: 2020 - [facility] Type of Sleep Study: Polysomnography HPI additional information: Mr. Monson was diagnosed to have moderate obstructive sleep apnea-hypopnea syndrome and returns today for follow up of CPAP therapy. The patient purchased the device from [employer] and was fitted with a full face mask. He continues to use the device nightly and all through the night. The compliance report shows that he uses the device 361 nights out of the past 365 nights, averaging 8.6 hours a night. The > 4 hour compliance rate for the past 30 days is 97%. He complains of the headgear rubbing his right mormon. His aerophagia improved. He thinks that the pressure of 5 - 11 cmH2O is alright (lowered last year for aerophagia). On the CPAP therapy he notices improvement in his sleep quality, and that he wakes up feeling fresher in the morning and more awake/alert during the day. Rumson Sleepiness Scale score is 0. The average residual AHI is 2.4 (was 5.5); and average air leak is 0.3 L/minute. The 90th percentile pressure is 10.6 cmH2O. Sleep Study - Results Type of Sleep Study: Polysomnography Prior sleep studies: Yes Year and Where: 2020 - [facility] CPAP Compliance Data - Data Reviewed with Patient Average duration of nightly device use: 8HRS 45MINS Compliance rate %: 91 (03/17/23-03/15/24) Current pressure setting (cmH2O): 5-11 Average residual AHI: 2.4 Subjective Initial Rumson Sleepiness Scale score: 5 (in 2019) Current Rumson Sleepiness Scale score: 0 (03/20/24) Allergies and Home Medications Drug allergies reviewed: Yes Home medication list reviewed: Yes Allergy and home medication list: Allergies shellfish derived Allergy (Verified 03/16/24 11:45) Anaphylaxis IV dye Allergy (Severe, Uncoded 03/16/24 11:45) anaphylactic Review of Systems Review of systems same as previous: Yes (NO CHANGE) Physical Exam Vital signs obtained and entered by: JUAN Gonzalez MA Blood Pressure: 118/62 (RIGHT ARM) Cuff size: regular Heart Rate: 64 O2 Saturation: 99 Height: 5 ft 7 in Weight: 190 lb 12.8 oz Body Mass Index: 29.9 BMI Classification: Overweight Impression and Plan IMPRESSION: 1. Obstructive Sleep Apnea-Hypopnea Syndrome, moderate (AHI = 16.6), with the patient continuing to do well on nasal CPAP therapy. He has excellent compliance and significant clinical benefits. The current pressure appears effective but comfortable. Overall, he is very satisfied with the treatment and plans to continue with it long-term. No adjustment is necessary today. I will have him try a nasal mask to relieve the rubbing on his temples. PLAN: 1. Leave autoCPAP at 5 - 11 cm H2O. 2. A Norman-Paykel Brevida nasal pillows given to him to try. 3. Return in one year for follow up or earlier if there is any problem with the treatment. Mask provided: Yes Follow up with Sleep Care in: 1 year Visit Type: In Office Time Spent with Patient (minutes): 15 Provider Statement: I spent 100% of the Face to Face Visit with the patient with greater than 50% spent counseling the patient and coordination of care.
[2024-03-21 08:18] VITALS: BP 118/62; O2SAT 99
== END 2024-03-20 14:37 | disposition home or self-care (01) ==
LOC: SC 14:36
PROVIDERS: ATTEND Internal Medicine Pulmonary Disease
DX: G47.33 Obstructive sleep apnea (adult) (pediatric) (principal); E66.3 Overweight; Z68.29 Body mass index [BMI] 29.0-29.9, adult
CPT/HCPCS: 99212; G0463

== ENCOUNTER 2024-04-14 08:08 | Outpatient (CLI) | payer MEDICARE, OTHER ==
[2024-04-14 22:12] LABS: ESTIMATED AVERAGE GLUCOSE 137 mg/dL (70-100); HEMOGLOBIN A1c% 6.4 % (4.27-6.07)
== END 2024-04-14 08:09 | disposition home or self-care (01) ==
LOC: LAB.N 08:08
PROVIDERS: ATTEND Family Medicine
DX: E11.65 Type 2 diabetes mellitus with hyperglycemia (principal)
CPT/HCPCS: 36415; 83036

== ENCOUNTER 2024-05-12 10:35 | Outpatient (CLI) | payer MEDICARE, OTHER ==
[2024-05-12 18:07] LABS: BASOPHILS # (AUTO) 0.1 10^3/uL (0.0-0.1); BASOPHILS % (AUTO) 1.2 %; EOSINOPHILS # (AUTO) 0.1 10^3/uL (0.0-0.7); EOSINOPHILS % (AUTO) 3.2 %; HCT - HEMATOCRIT 30.8 % (42.0-52.0); HGB - HEMOGLOBIN 9.4 g/dL (14.0-18.0); LYMPHOCYTES % (AUTO) 24.9 %; MEAN CORPUSCULAR HEMOGLOBIN 28.2 pg (27.0-31.0); MEAN CORPUSCULAR HGB CONC 30.5 g/dL (32.0-36.0); MEAN CORPUSCULAR VOLUME 92.5 fL (80.0-94.0); MEAN PLATELET VOLUME 10.4 fL (7.4-11.4); MONOCYTES # (AUTO) 0.2 10^3/uL (0.0-1.0); MONOCYTES % (AUTO) 5.7 %; NEUTROPHILS # (AUTO) 2.6 10^3/uL (1.5-6.6); NEUTROPHILS % (AUTO) 64.8 %; PLT - PLATELET COUNT 189 10^3/uL (130-450); RED BLOOD COUNT 3.33 10^6/uL (4.70-6.10); RED CELL DISTRIBUTION WIDTH 14.5 % (12.0-15.0)
[2024-05-12 18:53] LABS: CALCIUM 8.9 mg/dL (8.5-10.3); CREATININE 2.4 mg/dL (0.6-1.3); POTASSIUM 5.7 mmol/L (3.5-4.5)
== END 2024-05-12 10:36 | disposition home or self-care (01) ==
LOC: LAB.N 10:35
PROVIDERS: ATTEND Internal Medicine Nephrology
DX: N05.9 Unspecified nephritic syndrome with unspecified morphologic changes (principal); D70.9 Neutropenia, unspecified; D63.1 Anemia in chronic kidney disease
CPT/HCPCS: 36415; 80048; 85025